=== PATIENT | female | born 1950 | race Caucasian/White ===

== ENCOUNTER → 2016-11-18 | Outpatient (CLI) | payer MEDICARE ==
--- NOTE | 2016-11-18 17:25 | RAD ---
Right lower extremity venous ultrasound, 11/18/2016 : History: Right leg pain and swelling Duplex evaluation including grayscale, color flow and spectral Doppler analysis was performed. The femoral and popliteal veins show no filling defects to suggest DVT. The visualized deep veins in the right calf are unremarkable. IMPRESSION: There is no sonographic evidence of deep vein thrombosis in the right lower extremity
== END | disposition home or self-care (01) ==
LOC: US 16:53
PROVIDERS: ATTEND Family Medicine
DX: M79.604 Pain in right leg (principal); M79.89 Other specified soft tissue disorders
CPT/HCPCS: 93971

== ENCOUNTER → 2017-01-05 | Outpatient (CLI) | payer MEDICARE ==
--- NOTE | 2017-01-05 19:07 | RAD ---
APPROVED REPORT Patient Location : OUT-PATIENT Indications Skin Changes The bilateral greater and lesser saphenous veins do not demonstrate any evidence of thrombus on limit ed images. The RGSV measures 6.3 mm, LGSV measures 4.8 mm. No reflux is noted on color and spectral images. The RLSV measures 6.1 mm and LLSV measures 3.9 mm. No reflux is noted on color and spectral images. Critical Notification Critical Value: No <Conclusion> 1. Negative for venous reflux in the greater and lesser saphenous veins bilaterally. 2. Multiple spider veins noted, consider referral to cosmetic vein center.
== END | disposition home or self-care (01) ==
LOC: US 12:36
PROVIDERS: ATTEND Internal Medicine Cardiovascular Disease
DX: I87.2 Venous insufficiency (chronic) (peripheral) (principal)
CPT/HCPCS: 93970

== ENCOUNTER 2017-01-11 18:09 | Emergency (ER) | payer MEDICARE ==
[~2017-01-11] VITALS: Ht 162.6 cm; Wt 76.8 kg
--- NOTE | 2017-01-11 18:30 | PHYS DOC ---
Past History Additional Past Medical Histor: alpha-1 antitrypsan; Piedad's granulomatous Past Surgical History: No Surgical History Smoking: Cigarettes Social History Narrative: Adult General Chief Complaint Chief Complaint: MECHANICAL FALL HPI HPI Patient is a 66 year old female who presents with fall. She states she fell by her closet at 0400 am today. She hit the left side of her face. She did not seek medical care today. She ironically had an ECHO done today and the laboratory development technician told her to "get checked out." Left sided neck pain. No back pain. No chest pain; no SOA. her ECHO today was negative (report already posted) and she had recent LE US that were negative as well. She is followed by Dr bello. Review of Systems Review of Systems Respiratory: Denies cough or shortness of breath Cardiovascular: No chest pain GI: Denies abdominal pain, nausea, vomiting, bloody stools or diarrhea Musculoskeletal: Denies back pain or joint pain; left sided neck pain. Left shoulder pain but with ROM. Integument: Denies rash or skin lesions; abrasion to left eyebrow. Neurologic: Denies headache, focal weakness or sensory changes Physical Exam Physical Exam Constitutional: Well developed, well nourished, no acute distress, non-toxic appearance. HENT: Normocephalic, abrasion to left lateral eyebrow, TM clear without hemotympanum; bilateral external ears normal, oropharynx moist, no oral exudates, nose normal. Eyes: PERRLA, EOMI, conjunctiva normal, no discharge. Neck: Normal range of motion, no tenderness, supple, no stridor. Non tender to palpation of cervical spine; no step off or crepitance. Cardiovascular:Heart rate regular rhythm, no murmur Lungs & Thorax: Bilateral breath sounds clear to auscultation Abdomen: Bowel sounds normal, soft, no tenderness, no masses, no pulsatile masses. Skin: Warm, dry, no erythema, no rash. Abrasion as noted. Back: No tenderness, no CVA tenderness. Extremities: No tenderness, no cyanosis, no clubbing, ROM intact, no edema. Neurologic: Alert and oriented X 3, normal motor function, normal sensory function, no focal deficits noted. Radiology/Procedures Radiology/Procedures [address] [address] IMAGING REPORT Signed PATIENT: LEE VALERO ACCOUNT: [id number] : 1950 LOCATION: ER AGE: 66 SEX: F EXAM STATUS: REG ER ORD. PHYSICIAN: PERNELL DEAN MD REASON: fell left eyebrow injur PROCEDURE: CT HEAD AND CERVICAL SPINE WO Indication: Fall today, laceration to left eyebrow. Neck pain. Technique: Noncontrast CT head was obtained. CT cervical spine includes axial images and coronal and sagittal reformatted images. No comparison is available. One or more of the following individualized dose reduction techniques were utilized for this examination: 1. Automated exposure control 2. Adjustment of the mA and/or kV according to patient size 3. Use of iterative reconstruction technique Findings: Head: There is prominence of the ventricles and sulci. Areas of decreased attenuation in the supratentorial white matter are not specific but most suggestive of mild small vessel ischemic disease. There is no acute intracranial hemorrhage or extra-axial fluid collection. There is no mass effect or midline shift. Fernandez-white differentiation is preserved. There are vascular calcifications. Paranasal sinuses and mastoid air cells are clear. There is no depressed skull fracture. Cervical spine: Anterolisthesis at C4-C5 measures 3 mm, likely degenerative. No traumatic malalignment is identified. There is no fracture. Prevertebral soft tissues are within normal limits. Craniovertebral junction is unremarkable. Disc osteophyte complex and uncinate process spurring is noted at C5-C6 and C6-C7, greater at C6-C7. At C6-C7 there is also endplate sclerosis and narrowing of the interspace. There is foraminal narrowing at these 2 levels, at least moderate, and there may be mild canal stenosis. Lymph nodes along the cervical chains are presumed reactive. IMPRESSION: Head: 1. No acute intracranial findings. 2. Brain parenchymal volume loss and probable small vessel ischemic disease. Cervical spine: 1. No evidence of an acute fracture or traumatic malalignment. 2. Degenerative changes are greatest at C5-C6 and C6-C7. Electronically signed by: Nayla Paz MD (01/11/2017 7:23 PM) [facility] DICTATED AND SIGNED BY: NAYLA PAZ MD DATE: 01/11/171916 CC: PERNELL DEAN MD; JESSICA NAIK MD ~ Course & Med Decision Making Course & Med Decision Making Evaluated patient. CT ordered. At 1935 PM: Ct results back. No acute findings. Spouse here and given results. Continue with follow up as scheduled. I have spoken with the patient and/or caregivers. I have explained the patient' s condition, diagnosis and treatment plan based on the information available to me at this time. I have answered the patient's and/or caregiver's questions and addressed any concerns. The patient and/or caregivers have as good an understanding of the patient's diagnosis, condition and treatment plan as can be expected at this point. The patient's condition is stable and appropriate for discharge from the emergency department. The patient will pursue further outpatient evaluation with the primary care physician or other designated or consulting physician as outlined in the discharge instructions. The patient and/or caregivers are agreeable to this plan of care and follow-up instructions have been explained in detail. The patient and/or caregivers have received these instructions in written format and have expressed an understanding of the discharge instructions. The patient and/or caregivers are aware that any significant change in condition or worsening of symptoms should prompt an immediate return to this or the closest emergency department or a call to 911. Dragon Disclaimer Dragon Disclaimer This chart was dictated in whole or in part using Voice Recognition software in a busy, high-work load, and often noisy Emergency Department environment. It may contain unintended and wholly unrecognized errors or omissions. Departure Departure: Impression: Primary Impression: Fall Additional Impression: Facial contusion Disposition: 01 HOME, SELF-CARE Condition: STABLE Referrals: JESSICA NAIK MD (PCP) Patient Instructions: Facial or Scalp Contusion Additional Instructions: Your tetanus was up to date so you were not boosted here today. Problem Qualifiers Primary Impression: Fall Encounter type: initial encounter Qualified Codes: W19.XXXA - Unspecified fall, initial encounter Additional Impression: Facial contusion Encounter type: initial encounter Qualified Codes: S00.83XA - Contusion of other part of head, initial encounter PERNELL DEAN MD Jan 11, 2017 18:30
--- NOTE | 2017-01-11 19:26 | RAD ---
Indication: Fall today, laceration to left eyebrow. Neck pain. Technique: Noncontrast CT head was obtained. CT cervical spine includes axial images and coronal and sagittal reformatted images. No comparison is available. One or more of the following individualized dose reduction techniques were utilized for this examination: 1. Automated exposure control 2. Adjustment of the mA and/or kV according to patient size 3. Use of iterative reconstruction technique Findings: Head: There is prominence of the ventricles and sulci. Areas of decreased attenuation in the supratentorial white matter are not specific but most suggestive of mild small vessel ischemic disease. There is no acute intracranial hemorrhage or extra-axial fluid collection. There is no mass effect or midline shift. Fernandez-white differentiation is preserved. There are vascular calcifications. Paranasal sinuses and mastoid air cells are clear. There is no depressed skull fracture. Cervical spine: Anterolisthesis at C4-C5 measures 3 mm, likely degenerative. No traumatic malalignment is identified. There is no fracture. Prevertebral soft tissues are within normal limits. Craniovertebral junction is unremarkable. Disc osteophyte complex and uncinate process spurring is noted at C5-C6 and C6-C7, greater at C6-C7. At C6-C7 there is also endplate sclerosis and narrowing of the interspace. There is foraminal narrowing at these 2 levels, at least moderate, and there may be mild canal stenosis. Lymph nodes along the cervical chains are presumed reactive. IMPRESSION: Head: 1. No acute intracranial findings. 2. Brain parenchymal volume loss and probable small vessel ischemic disease. Cervical spine: 1. No evidence of an acute fracture or traumatic malalignment. 2. Degenerative changes are greatest at C5-C6 and C6-C7. Electronically signed by: Lawrence Paz MD (01/11/2017 7:23 PM) [facility]
[2017-01-11 19:45] VITALS: BP 150/84
== END 2017-01-11 19:45 | disposition home or self-care (01) ==
LOC: ER 18:11
DX: S00.83XA Contusion of other part of head, initial encounter (principal); M54.2 Cervicalgia; M25.512 Pain in left shoulder; S00.212A Abrasion of left eyelid and periocular area, initial encounter; F17.210 Nicotine dependence, cigarettes, uncomplicated; W18.09XA Striking against other object with subsequent fall, initial encounter; Y93.89 Activity, other specified; Y99.8 Other external cause status; Y92.89 Other specified places as the place of occurrence of the external cause
CPT/HCPCS: 70450; 72125; 99284-25

== ENCOUNTER → 2017-01-11 | Outpatient (CLI) | payer MEDICARE ==
--- NOTE | 2017-01-11 16:58 | CARD ---
APPROVED REPORT EXAM: Two-dimensional and M-mode echocardiogram with Doppler and color Doppler. Other Information Quality : Average Rhythm : NSR INDICATION Hypertension/HCVD 2D DIMENSIONS Left Atrium(2D)2.5 (1.6-4.0cm)IVSd1.0 (0.7-1.1cm) Aortic Root(2D)2.6 (2.0-3.7cm)LVDd4.7 (3.9-5.9cm) LVOT Diameter1.9 (1.8-2.4cm)PWd1.0 (0.7-1.1cm) LVDs3.2 (2.5-4.0cm)FS (%) 27.3 % SV60.0 mlLVEF(%)55.1 (>50%) Aortic Valve AoV Peak Derian.125.8cm/sAoV VTI25.1cm AO Peak GR.6.3mmHgLVOT Peak Derian.107.5cm/s LVOT VTI 21.66cmAO Mean GR.3mmHg MICHAELA (VMAX)2.34ji5OGK (VTI)2.48cm2 Mitral Valve MV E Ifmbbaoa61.3cm/sMV DECEL GJFN299ml MV A Wukagjix54.5cm/sMV XGD08cg E/A Ratio0.9MV A [id number] MVA (PHT)3.56cm2 LEFT VENTRICLE The left ventricle is normal size. There is normal left ventricular wall thickness. Left ventricle sy stolic function is normal. The Ejection Fraction is 50-55%. There is normal LV segmental wall motion. The left ventricular diastolic function and filling is normal for age. There is no ventricular septa l defect visualized. RIGHT VENTRICLE The right ventricle is normal size. The right ventricular systolic function is normal. ATRIA The left atrium size is normal. The right atrium size is normal. The interatrial septum is intact wit h no evidence for an atrial septal defect or patent foramen ovale as noted on 2-D or Doppler imaging. AORTIC VALVE The aortic valve is normal in structure and function. The aortic valve is trileaflet. Doppler and Col or Flow revealed no significant aortic regurgitation. There is no significant aortic valvular stenosi s. MITRAL VALVE The mitral valve is normal in structure and function. There is no mitral valve stenosis. Doppler and Color Flow revealed trace mitral valve regurgitation. TRICUSPID VALVE The tricuspid valve is normal in structure and function. Doppler and Color Flow revealed no tricuspid valve regurgitation noted. There is no tricuspid valve stenosis. PULMONIC VALVE The pulmonic valve is not well visualized. Doppler and Color Flow revealed no pulmonic valvular regur gitation. There is no pulmonic valvular stenosis. GREAT VESSELS The aortic root is normal in size. Pulmonary veins not recorded. The IVC is normal in size and collap ses >50% with inspiration. PERICARDIAL EFFUSION There is no evidence of significant pericardial effusion. Critical Notification Critical Value: No <Conclusion> The left ventricle is normal size. Left ventricle systolic function is normal. The Ejection Fraction is 50-55%. There is normal left ventricular wall thickness. There is no significant aortic valvular stenosis. Doppler and Color Flow revealed no significant aortic regurgitation. Doppler and Color Flow revealed trace mitral valve regurgitation. Doppler and Color Flow revealed no tricuspid valve regurgitation.
== END | disposition home or self-care (01) ==
LOC: ECHO 12:41
PROVIDERS: ATTEND Internal Medicine Cardiovascular Disease
DX: I10 Essential (primary) hypertension (principal)
CPT/HCPCS: 93306

== ENCOUNTER 2017-02-22 10:21 | Inpatient (IN) | payer MEDICARE ==
[~2017-02-22] VITALS: Ht 160 cm; Wt 73.3 kg
[2017-02-22] VITALS (10 sets, daily range): BP systolic 100–147; BP diastolic 51–73
[2017-02-22] MEDS ORDERED: methylPREDNISolone SOD SUCC PF 125 MG/2 ML VIAL. IV ONE (11:10)
[2017-02-22] MEDS ORDERED: IPRATRPIUM/ALBUTEROL 0.5/2.5MG 3 ML NEBU. NEB ONE (11:15)
[2017-02-22 11:16] LABS: BASO # 0.1 x10^3/uL (0.0-0.2); BASO % 1 % (0-3); EOS # 0.2 x10^3/uL (0.0-0.7); EOS % 2 % (0-3); LYMPH # 2.3 x10^3/uL (1.0-4.8); LYMPH % 25 % (24-48); MEAN CORPUSCULAR HEMOGLOBIN 30 pg (25-35); MEAN CORPUSCULAR HGB CONC 33 g/dL (31-37); MEAN CORPUSCULAR VOLUME 90 fL (79-100); MONO # 0.8 x10^3/uL (0.0-1.1); MONO % 9 % (0-9); NEUT # 5.7 x10^3uL (1.8-7.7); NEUT % 64 % (31-73); PLATELET COUNT 261 x10^3/uL (140-400); RED BLOOD COUNT 5.37 x10^6/uL (3.50-5.40); RED CELL DISTRIBUTION WIDTH 13.9 % (11.5-14.5)
[2017-02-22 11:18] LABS: BGAS PH 7.36 (7.35-7.45)
--- NOTE | 2017-02-22 11:20 | PHYS DOC ---
General Chief Complaint: SHORTNESS OF BREATH Stated Complaint: COUGH SOA Time Seen by MD: 10:22 Source: patient, RN/MD, old records Exam Limitations: no limitations Problems: History of Present Illness Initial Comments Patient is a 66-year-old female sent to the ED from upstairs at Dr. Lechuga's office with respiratory distress. I received a call from Dr. Lechuga to report that the patient has history of COPD. She states she still smokes and that she's had a reported 1 week worsening cough with productive clear mucus. She has an oxygen diffuse her home but has not been using it up until the last few days. He reports that her room air oxygen saturation is 88-89% in his office on room air and the patient received O2 via nasal cannula throughout her office visit with him earlier today. On arrival to the emergency department patient has a severe cough and conversational dyspnea, she confirms her primary care doctor's report given over the phone. She denies actual chest pain other than chest wall and abdominal muscle pain she feels when coughing or taking deep breaths. She's had pneumonia in the past and states her symptoms are similar today however she hasn 't had recent fever chills or body aches. On ED arrival patient noted to have oxygen saturation on room air 88-91% DuoNeb and Solu-Medrol order on arrival in addition to labs, EKG, and imaging workup. Timing/Duration: 1 week, getting worse Severity: moderate Modifying Factors: worse with movement, improves with rest Associated Symptoms: cough, shortness of breath Allergies: Coded Allergies: doxycycline (Verified Allergy, Unknown, 01/11/17) methotrexate (Verified Allergy, Unknown, 01/11/17) Past Medical History Medical History: other (alpha-1 antitrypsin deficiency, rheumatoid arthritis, Piedad's granuloma, COPD) Surgical History: other (appendectomy, hysterectomy, partial colectomy, left shoulder, left wrist) Social History Smoker: cigarettes (patient continues to smoke about a pack a day typically) Alcohol: none Drugs: none Review of Systems Constitutional: denies chills, denies diaphoresis, denies fever, malaise, weakness Respiratory: see HPI Cardiovascular: see HPI, denies edema, denies palpitations, denies syncope Gastrointestinal: see HPI, denies diarrhea, denies nausea, denies vomiting Genitourinary: denies dysuria, denies frequency, denies hematuria Musculoskeletal: see HPI, denies back pain, denies joint swelling, denies neck pain Psychiatric/Neurological: denies headache, denies numbness, denies paresthesia Hematologic/Lymphatic: denies blood clots, denies easy bleeding, denies easy bruising Physical Exam General Appearance: moderate distress (severe coughing and tachypnea respiratory distress) Eyes: bilateral eye PERRL, bilateral eye EOMI Ear, Nose, Throat: hearing grossly normal, normal ENT inspection, normal pharynx Neck: non-tender, supple Respiratory: respiratory distress, other (decreased breath sounds bilaterally with fair air movement and a wheeze, accessory muscle use noted) Cardiovascular: normal peripheral pulses, regular rate, rhythm Gastrointestinal: normal bowel sounds, non tender, soft Back: no CVA tenderness, no vertebral tenderness Extremities: non-tender, normal inspection (one plus pitting lower extremity edema), no calf tenderness, pelvis stable Neurologic/Psychiatric: field naturalist II-XII nml as tested, no motor/sensory deficits, alert, normal mood/affect, oriented x 3 Skin: normal color, warm/dry Orders, Labs, Meds EKG: Normal sinus rhythm 80 bpm, nonspecific ST-T changes no STEMI. Interpreted by Dr. Taylor. ABG: PH 7.361, PCO2 28.8, PO2 57, base excess -9, bicarbonate 16.3, PCO2 17, oxygen saturation 89%, FiO2 21% PATIENT: LEE VALERO ACCOUNT: [id number] : 1950 LOCATION: ER AGE: 66 SEX: F EXAM STATUS: REG ER ORD. PHYSICIAN: ALISA TAYLOR DO REASON: sob PROCEDURE: CHEST PA & LATERAL 2 view CXR: Clinical indications: Wheezing and shortness of air and cough. Long time smoker.. Findings: Bilateral interstitial lung disease and peribronchial thickening is seen which may be acute or chronic in nature. No lung consolidation or lung mass is seen. No pleural effusion or pneumothorax is evident. The heart size, pulmonary vasculature, mediastinum and both ofelia are unremarkable. The osseous structures appear intact. Impression: Bilateral interstitial lung disease and peribronchial thickening which may be acute or chronic in nature. No lung consolidation is seen otherwise.. DICTATED AND SIGNED BY: MOHINDER TERRAZAS MD DATE: 02/22/17 1120 CC: JESSICA LECHUGA MD; ALISA TAYLOR DO ~ Lab evaluation unremarkable Patient received Solu-Medrol 125 mg IV, DuoNeb initially which worsened her cough and clear sputum production. Guaifenesin with codeine and another albuterol nebulizer treatment given and after a time the patient's symptoms did appear to let up somewhat and she maintained oxygen saturations around 91% on room air shortly thereafter she relaxed and fell asleep. Oxygen saturation dipped to 86% while sleeping and supplemental O2 2 L improved saturations to the low 90s. I discussed the patient with Dr. Truong. After thorough discussion he recommends ICU inpatient admission for further respiratory support and monitor labs. Patient is agreeable to inpatient treatment, I called a report to Dr. Lechuga personally via phone to advise the patient's admission. Impressions: Respiratory distress COPD exacerbation Tobaccoism Alpha-1 antitrypsin deficiency Piedad's granuloma disease Departure Disposition: ADMITTED INPATIENT Condition: STABLE ALISA TAYLOR DO Feb 22, 2017 11:19
--- NOTE | 2017-02-22 11:25 | RAD ---
2 view CXR: Clinical indications: Wheezing and shortness of air and cough. Long time smoker.. Findings: Bilateral interstitial lung disease and peribronchial thickening is seen which may be acute or chronic in nature. No lung consolidation or lung mass is seen. No pleural effusion or pneumothorax is evident. The heart size, pulmonary vasculature, mediastinum and both ofelia are unremarkable. The osseous structures appear intact. Impression: Bilateral interstitial lung disease and peribronchial thickening which may be acute or chronic in nature. No lung consolidation is seen otherwise..
[2017-02-22 11:38] LABS: CALCIUM 9.9 mg/dL (8.5-10.1); CREATININE 0.9 mg/dL (0.6-1.0); GFR 62.8; POTASSIUM 4.5 mmol/L (3.5-5.1)
[2017-02-22] MEDS: guaiFENesin/CODEINE 100mg/10mg 5 ML LIQUID PO PRN ×2 (12:15→21:43)
[2017-02-22] MEDS ORDERED: ACETAMINOPHEN 325 MG TABLET PO PRN (12:30)
[2017-02-22] MEDS ORDERED: ONDANSETRON PF 4 MG/2 ML VIAL. IV PRN (12:30)
[2017-02-22] MEDS ORDERED: ALBUTEROL SULFATE 2.5 MG/3 ML NEBU. ONE (12:53)
--- NOTE | 2017-02-22 14:09 | EKG ---
[address] [address] Test Date: 2017-02-22 Test Time: 11:08:38 Pat Name: LEE VALERO Department: Room: ICU06 1 Gender: F Director Multimedia: JEAN : 1950 Requested By: ALISA TAYLOR Order Number: [id number] Reading MD: Rich Thompson MD Measurements Intervals [place] Rate: 80 P: 64 NH: 152 QRS: 65 QRSD: 80 T: 48 QT: 346 QTc: 402 Interpretive Statements SINUS RHYTHM Electronically Signed On 02-28-2017 11:02:15 HOT ROLL INSPECTOR by Rich Thompson MD
[2017-02-22] MEDS: IPRATRPIUM/ALBUTEROL 0.5/2.5MG 3 ML NEBU. NEB SCH ×2 (15:58→21:14)
[2017-02-22] MEDS ORDERED: FLUT1AER IH (16:13)
[2017-02-22] MEDS ORDERED: POTA20TA4 PO (16:14)
[2017-02-22] MEDS ORDERED: MYCO500T PO (16:14)
[2017-02-22] MEDS ORDERED: GABA-585 PO (16:15)
[2017-02-22] MEDS ORDERED: PANT40TA3 PO (16:17)
[2017-02-22] MEDS ORDERED: TRAM50TA PO (16:18)
[2017-02-22] MEDS ORDERED: CITA40TA5 PO (17:00)
[2017-02-22] MEDS ORDERED: GABA600T2 PO (17:00)
[2017-02-22] MEDS ORDERED: CYCL-331 PO (17:01)
[2017-02-22] MEDS ORDERED: PRAM0.5T PO (17:02)
[2017-02-22] MEDS ORDERED: LOSA50TA6 PO (17:03)
[2017-02-22] MEDS ORDERED: traMADol 50 MG TABLET PO PRN (17:45)
--- NOTE | 2017-02-22 18:10 | HP ---
ADMIT DATE: 02/22/2017 HISTORY OF PRESENT ILLNESS: The patient is a 66-year-old female patient, who came to the Emergency Room complaining of shortness of breath, cough, initially white sputum that changed to become dark. She has also had fever at one point in time and she has also complained of chest pain. She was extensively investigated and was admitted with COPD exacerbation. PAST MEDICAL HISTORY: Significant for rheumatoid arthritis, fibromyalgia, Lidia's granulomatosis, alpha 1 antitrypsin deficiency, chronic obstructive pulmonary disease, restless leg syndrome, and hypertension. PAST SURGICAL HISTORY: Significant for left rotator cuff repair, carpal tunnel release. She had appendectomy, total abdominal hysterectomy, bilateral salpingo-oophorectomy, back surgery. She has also some hernia repair and esophagogastroduodenoscopy as well as colonoscopy. ALLERGIES: She is ALLERGIC TO METHOTREXATE WELL DOXYCYCLINE. MEDICATIONS: She is currently on following medications. Currently her home medication is still pending at the time of this dictation. She gets her medication from ____, I would be contacting that pharmacy to find out exactly what she is on. FAMILY HISTORY: She has two half-brothers and both diseased. Her father at age of 89 because of COPD and myocardial infarction. Mother at the age of 90 because of end-stage renal disease. SOCIAL HISTORY: She has 2 daughters. She smokes half to 1 pack of cigarettes. She does not drink alcohol or use any recreational drugs. She is retired and currently on disability. 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 REVIEW OF SYSTEMS: The patient denied any blurring of vision, cataract, glaucoma, or macular degeneration. Denied any earache, tinnitus, or sensorineural deafness. Denied any nosebleeds, stuffy nose, or postnasal drip. Denied any sore throat, sore tongue, toothache, hoarseness of voice, or difficulty swallowing. She denied any nausea, vomiting, diarrhea or constipation. Denied any hematemesis, melena, or hematochezia. Denied any dysuria, frequency, or hematuria. Denied any chills, rigors, or fever. Did complain of shortness of breath, cough with whitish sputum. Denied any hemoptysis. PHYSICAL EXAMINATION: GENERAL: On arrival to the Emergency Room, she was somewhat tachypneic, hypoxic, but no pallor, jaundice, cyanosis, lymphadenopathy, or thyromegaly. No jugular venous distension. No lower limb edema. VITAL SIGNS: Her heart rate was 93, blood pressure 147/67, temperature was 97, respiratory rate was 29, and oxygen saturation was 93% on 2 liters of oxygen by nasal cannula. HEENT: Showed normocephalic, atraumatic. NECK: Supple. HEART: Showed normal first and second heart sounds with no gallop, rub, or murmur. CHEST: Chest shows central trachea, equally reduced expansion, reduced air entry, vesicular sounds. No crepitation or rhonchi. ABDOMEN: Distended, soft, nontender. NEUROLOGIC: She is awake, alert, responding appropriately. Cranial nerves intact. EXTREMITIES: She moves extremities without difficulty. LABORATORY DATA: While in the Emergency Room, she has lab work, which showed a white cell count of 9000, hemoglobin 16, hematocrit 48, MCV 90, and platelet count 261,000 with normal manual differential. Her blood gases showed a pH of 7.36, pCO2 of 29, pO2 of 57, bicarbonate was 16, and oxygen saturation was 89% on room oxygen. Her chemistry showed a serum sodium 138, potassium 4.5, chloride 105, bicarbonate 25, anion gap of 8, BUN 10, creatinine 0.9, estimated GFR was 62 mL per minute. Her glucose 118, calcium was 9.9 and beta natriuretic peptide was 79. Her chest x-ray showed that the patient has bilateral interstitial lung disease and peribronchial thickening, which may be acute or chronic in nature, no lung consolidation or lung mass seen. No pleural effusion or pneumothorax is evident. The heart size, pulmonary vasculature, mediastinum and both ofelia are unremarkable. The osseous structures appear intact. ASSESSMENT AND PLAN: In summary, this is a 66-year-old female patient, who is known to have alpha 1 antitrypsin deficiency, chronic obstructive pulmonary disease as well as Piedad's granulomatosis ____ with increasing shortness of breath, cough with mostly whitish sputum. Her chest x-ray showed no evidence of pneumonia or heart failure. We will continue with nebulized albuterol and Atrovent, steroids and Pulmicort as well as Singulair and we will decide on further management accordingly. JESSICA CAIN MD DR: ELIJAH/elio JOB#: [id number] / [id number]
[2017-02-22] MEDS: BUDESONIDE 0.5 MG/2 ML NEBU NEB SCH (21:13)
[2017-02-22] MEDS: CYCLOBENZAPRINE 10 MG TABLET. PO SCH (21:40)
[2017-02-22] MEDS: MYCOPHENOLATE MOFETIL 500 MG TABLET. PO SCH (21:40)
[2017-02-22] MEDS: POTASSIUM CHLORIDE 20 MEQ TABLET.ER. PO SCH (21:41)
[2017-02-22] MEDS: GABAPENTIN 300 MG CAPSULE. PO SCH (21:42)
[2017-02-22] MEDS: MONTELUKAST 10 MG TABLET. PO SCH (21:42)
[2017-02-22] MEDS: PRAMIPEXOLE 0.5 MG TABLET. PO SCH (21:42)
[2017-02-22] MEDS: methylPREDNISolone SOD SUCC PF 125 MG/2 ML VIAL. IV SCH (21:42)
[2017-02-23] VITALS (16 sets, daily range): BP systolic 81–134; BP diastolic 42–71
[2017-02-23] MEDS: IPRATRPIUM/ALBUTEROL 0.5/2.5MG 3 ML NEBU. NEB SCH ×3 (05:47→15:46)
[2017-02-23 06:26] LABS: BASO % 0 % (0-3); EOS % 0 % (0-3); HEMATOCRIT 42.9 % (36.0-47.0); HEMOGLOBIN 14.4 g/dL (12.0-15.5); LYMPH % 8 % (24-48); MEAN CORPUSCULAR HEMOGLOBIN 30 pg (25-35); MEAN CORPUSCULAR HGB CONC 34 g/dL (31-37); MEAN CORPUSCULAR VOLUME 89 fL (79-100); MONO # 0.2 x10^3/uL (0.0-1.1); MONO % 2 % (0-9); NEUT # 11.1 x10^3uL (1.8-7.7); NEUT % 90 % (31-73); PLATELET COUNT 226 x10^3/uL (140-400); RED BLOOD COUNT 4.81 x10^6/uL (3.50-5.40); RED CELL DISTRIBUTION WIDTH 14.1 % (11.5-14.5); WHITE BLOOD COUNT 12.3 x10^3/uL (4.0-11.0)
[2017-02-23 06:34] LABS: ALBUMIN 3.8 g/dL (3.4-5.0); ALBUMIN/GLOBULIN RATIO 1.1 (1.0-1.7); C REACTIVE PROTEIN 4.9 mg/L (0-3.3); CALCIUM 9.4 mg/dL (8.5-10.1); GFR 55.6; TOTAL BILIRUBIN 0.5 mg/dL (0.2-1.0); TOTAL PROTEIN 7.2 g/dL (6.4-8.2)
[2017-02-23] MEDS: methylPREDNISolone SOD SUCC PF 125 MG/2 ML VIAL. IV SCH ×2 (06:37→17:11)
[2017-02-23] MEDS: MYCOPHENOLATE MOFETIL 500 MG TABLET. PO SCH ×2 (07:49→21:19)
[2017-02-23] MEDS: PANTOPRAZOLE 40 MG TABLET. PO SCH (07:49)
[2017-02-23] MEDS: GABAPENTIN 300 MG CAPSULE. PO SCH ×3 (07:50→21:21)
[2017-02-23] MEDS: CYCLOBENZAPRINE 10 MG TABLET. PO SCH ×2 (07:50→21:17)
[2017-02-23] MEDS: LOSARTAN 50 MG TABLET. PO SCH (07:52)
[2017-02-23] MEDS: guaiFENesin/CODEINE 100mg/10mg 5 ML LIQUID PO PRN ×2 (07:52→21:43)
[2017-02-23] MEDS: POTASSIUM CHLORIDE 20 MEQ TABLET.ER. PO SCH ×2 (07:53→21:21)
[2017-02-23] MEDS: CITALOPRAM 20 MG TABLET. PO SCH (07:53)
[2017-02-23] MEDS: BUDESONIDE 0.5 MG/2 ML NEBU NEB SCH ×2 (09:17→20:59)
[2017-02-23] MEDS: LACTOBACILLUS ACIDOPH & BULGAR 1 TABLET. PO SCH ×2 (10:07→21:18)
[2017-02-23] MEDS: ALBUTEROL SULFATE 2.5 MG/3 ML NEBU. NEB PRN (20:59)
[2017-02-23] MEDS: MONTELUKAST 10 MG TABLET. PO SCH (21:17)
[2017-02-23] MEDS: PRAMIPEXOLE 0.5 MG TABLET. PO SCH (21:18)
--- NOTE | 2017-02-24 01:22 | PN ---
DATE: 02/23/2017 SUBJECTIVE: The patient is resting slightly propped up in bed, in no apparent respiratory distress. She was actually sleepy, but arousable. She is feeling much better. OBJECTIVE: GENERAL: When I examined her, she looked slightly pale, but not jaundiced, cyanosed or thyromegaly. No jugular venous distention. No limb edema. VITAL SIGNS: Her heart rate was 94, blood pressure 128/58, temperature was 97.8, respiratory rate 20, and oxygen saturation was 96% on 2 liters of oxygen. HEAD, EYES, EARS, NOSE AND THROAT: Showed normocephalic, atraumatic. NECK: Supple. HEART: Showed normal first and second heart sounds with no gallop, rub or murmur. CHEST: Clear to auscultation. No crepitation or rhonchi. ABDOMEN: Distended, soft, nontender. NEUROLOGIC: She was sleepy, but arousable. All cranial nerves intact. She moves extremities without difficulty. Her intake was 2250, output was 1100. LABORATORY DATA: Her lab work this morning showed a white cell count of 12,300, hemoglobin 14, hematocrit 42, MCV 89 and platelet count 226,000. Her serum sodium was 135, potassium 5, chloride 104, bicarbonate 20, anion gap of 11, BUN 17, creatinine 1, estimated GFR was 55 mL per minute. Her glucose 136, calcium 9.4. Total bilirubin, AST, ALT were normal. Alkaline phosphatase slightly elevated. She has 3 sets of troponins, all of them are less than 0.017. Her C-reactive protein was 4.9. Her total protein 7.2, albumin 3.8. Her sedimentation rate was 18. ASSESSMENT: 1. Acute hypoxic hypercapnic respiratory failure. 2. Chronic obstructive pulmonary disease exacerbation. 3. Piedad granulomatosis. 4. Alpha-1 antitrypsin deficiency. 5. Rheumatoid arthritis. 6. Fibromyalgia. 7. Restless legs syndrome. 8. Hypertension. PLAN: To continue with IV Solu-Medrol, nebulized albuterol and Atrovent as well as IV antibiotic. I will cut down her steroids twice a day and monitor her lab work and decide on further management accordingly. JESSICA CAIN MD DR: ELIJAH/elio JOB#: [id number] / [id number]
[2017-02-24] MEDS: ALBUTEROL SULFATE 2.5 MG/3 ML NEBU. NEB PRN ×2 (05:36→11:13)
[2017-02-24] MEDS: methylPREDNISolone SOD SUCC PF 125 MG/2 ML VIAL. IV SCH (06:06)
[2017-02-24 06:23] VITALS: BP 145/69
[2017-02-24] MEDS: CITALOPRAM 20 MG TABLET. PO SCH (07:37)
[2017-02-24] MEDS: LOSARTAN 50 MG TABLET. PO SCH (07:37)
[2017-02-24] MEDS: PANTOPRAZOLE 40 MG TABLET. PO SCH (07:37)
[2017-02-24] MEDS: CYCLOBENZAPRINE 10 MG TABLET. PO SCH (07:37)
[2017-02-24] MEDS: GABAPENTIN 300 MG CAPSULE. PO SCH (07:37)
[2017-02-24] MEDS: LACTOBACILLUS ACIDOPH & BULGAR 1 TABLET. PO SCH (07:38)
[2017-02-24] MEDS: MYCOPHENOLATE MOFETIL 500 MG TABLET. PO SCH (07:38)
[2017-02-24 08:10] LABS: ALBUMIN 3.7 g/dL (3.4-5.0); ALBUMIN/GLOBULIN RATIO 1.2 (1.0-1.7); CREATININE 1.1 mg/dL (0.6-1.0); GFR 49.8; POTASSIUM 4.8 mmol/L (3.5-5.1); TOTAL BILIRUBIN 0.3 mg/dL (0.2-1.0); TOTAL PROTEIN 6.8 g/dL (6.4-8.2)
[2017-02-24 08:11] LABS: BASO % 0 % (0-3); EOS % 0 % (0-3); HEMATOCRIT 41.9 % (36.0-47.0); LYMPH # 0.7 x10^3/uL (1.0-4.8); LYMPH % 4 % (24-48); MEAN CORPUSCULAR HEMOGLOBIN 30 pg (25-35); MEAN CORPUSCULAR HGB CONC 33 g/dL (31-37); MEAN CORPUSCULAR VOLUME 90 fL (79-100); MONO # 0.6 x10^3/uL (0.0-1.1); MONO % 3 % (0-9); NEUT # 15.4 x10^3uL (1.8-7.7); NEUT % 92 % (31-73); PLATELET COUNT 243 x10^3/uL (140-400); RED BLOOD COUNT 4.68 x10^6/uL (3.50-5.40); RED CELL DISTRIBUTION WIDTH 14.5 % (11.5-14.5); WHITE BLOOD COUNT 16.8 x10^3/uL (4.0-11.0)
[2017-02-24 08:44] LABS: % BANDS 2 % (0-9); % LYMPHS 5 % (24-48); % MONOS 2 % (0-10); % SEGS 91 % (35-66)
[2017-02-24 08:45] LABS: PLT ESTIMATE ADEQUATE (ADEQUATE); TOXIC GRANULATION SLIGHT
[2017-02-24] MEDS: POTASSIUM CHLORIDE 20 MEQ TABLET.ER. PO SCH (09:00)
[2017-02-24 11:00] VITALS: BP 125/64
[2017-02-24] MEDS: BUDESONIDE 0.5 MG/2 ML NEBU NEB SCH (11:13)
[2017-02-24] MEDS ORDERED: CEFP200T PO (13:45)
--- NOTE | 2017-02-24 15:50 | DS ---
DATE OF DISCHARGE: 02/24/2017 HOSPITAL COURSE: The patient is a 66-year-old female patient who was admitted to the Emergency Room with increasing shortness of breath, also fever, chest pain. She was extensively investigated and was admitted with COPD exacerbation and acute hypoxic hypercapnic respiratory failure. She was started on IV Solu-Medrol, bronchodilators as well as IV antibiotic and she did very well. When I saw her, she has had no further episodes of chest tightness, cough, or phlegm. Has no wheezing. She is not using any accessory muscles, has been up and about maintaining her oxygen saturation at 95% on room air. PHYSICAL EXAMINATION: GENERAL: When I examined her this afternoon, she looked well and was clearly in no apparent respiratory distress, pale and no jaundice, cyanosis, or thyromegaly. No jugular venous distention. No limb edema. VITAL SIGNS: Her heart rate was 82, blood pressure 125/64, temperature was 97.7, respiratory rate was 18 and oxygen saturation was 95% on room air. HEAD, EYES, EARS, NOSE AND THROAT: Showed normocephalic, atraumatic. NECK: Supple. HEART: Showed normal first and second heart sounds with no gallop, rub or murmur. CHEST: Clear to auscultation. No crepitation or rhonchi. ABDOMEN: Distended, soft, nontender. No guarding or rigidity. No organomegaly. Hernial orifices intact. Bowel sounds normal. NEUROLOGIC: She was awake, alert, responding appropriately. Cranial nerves intact. She moves extremities without difficulty. She ambulates without assistance or assistive devices. Her intake was 2414 and no output was recorded. LABORATORY WORK: As of this morning showed her white cell count was 16,800, hemoglobin 14, hematocrit 42, MCV 90 and platelet count 243,000. Her sedimentation rate was only 18 mm per hour. Her serum sodium was 136, potassium 4.8, chloride 104, bicarbonate 21, and anion gap of 11. BUN 29, creatinine 1.1. Estimated GFR was 50 mL per minute. Her glucose was 111, calcium was 9. Total bilirubin, AST, ALT, alkaline phosphatase were normal. Her C-reactive protein was 4.9 mg/dL. Total protein 6.8, albumin 3.7. DISCHARGE MEDICATIONS: The patient was discharged home to continue on a tapering course of steroids 40 mg once a day for three days, 30 mg once a day for three days, 20 mg once a day for three days, and finally 10 mg one a day for three days. Cefpodoxime 200 mg twice a day for seven days. She should continue on her citalopram hydrobromide 40 mg once a day, cyclobenzaprine 10 mg twice a day, Breo Ellipta one puff daily, gabapentin 600 mg 3 times a day, losartan potassium 50 mg once a day, mycophenolate mofetil or CellCept 1000 mg twice a day, Protonix 40 mg daily, potassium chloride 40 mEq twice a day, pramipexole 0.5 mg at bedtime and tramadol 50 mg p.o. q.6h. as needed. FINAL DISCHARGE DIAGNOSES: 1. Acute hypoxic respiratory failure, resolved. 2.Chronic obstructive pulmonary disease exacerbation, improved. 3.Piedad's granulomatosis, in remission. She is on CellCept and her sed rate was only 18. C-reactive protein was 4.5 mg/dL. 4.Alpha-1 antitrypsin deficiency. 5. Rheumatoid arthritis. 6. Fibromyalgia. 7. Restless leg syndrome. 8. Hypertension. JESSICA CAIN MD DR: ELIJAH/elio JOB#: [id number] / [id number]
== END 2017-02-24 14:20 | disposition home or self-care (01) | DRG 189 ==
LOC: ER 10:21 → ICU 12:35
PROVIDERS: ADMIT Internal Medicine; ATTEND Internal Medicine
DX: J96.01 Acute respiratory failure with hypoxia (principal); M31.30 Wegener's granulomatosis without renal involvement; E88.01 Alpha-1-antitrypsin deficiency; J44.1 Chronic obstructive pulmonary disease with (acute) exacerbation; F17.210 Nicotine dependence, cigarettes, uncomplicated; G25.81 Restless legs syndrome; I10 Essential (primary) hypertension; J96.02 Acute respiratory failure with hypercapnia; M06.9 Rheumatoid arthritis, unspecified; M79.7 Fibromyalgia; Z82.49 Family history of ischemic heart disease and other diseases of the circulatory system; Z82.5 Family history of asthma and other chronic lower respiratory diseases; Z87.01 Personal history of pneumonia (recurrent); Z90.710 Acquired absence of both cervix and uterus; Z90.49 Acquired absence of other specified parts of digestive tract; Z90.722 Acquired absence of ovaries, bilateral; Z88.8 Allergy status to other drugs, medicaments and biological substances
CPT/HCPCS: 36415; 71020; 80048; 80053; 82803; 83880; 84484; 85007; 85025; 85651; 86140; 87070; 87205; 87641; 93005; 94640; 96374; J0696; J2930; J7517; J7613; J7620; J7626; 99285-25

== ENCOUNTER 2017-07-10 10:05 | Emergency (ER) | payer MEDICARE ==
[~2017-07-10] VITALS: Ht 160 cm; Wt 76.8 kg
[~2017-07-10 10:05] MED LIST: CEFP200T PO; CITA40TA5 PO; CYCL-331 PO; FLUT1AER IH; GABA-585 PO; GABA600T2 PO; LOSA50TA6 PO; MYCO500T PO; PANT40TA3 PO; POTA20TA4 PO; PRAM0.5T PO; TRAM50TA PO
[2017-07-10 10:16] VITALS: BP 135/76
[2017-07-10] MEDS ORDERED: HYDROcodone/APAP 5/325MG 1 TAB TABLET PO ONE (10:50)
--- NOTE | 2017-07-10 10:59 | RAD ---
Left knee with patella, 4 views, 07/10/2017: History: Knee pain No fracture or dislocation is identified. Only minimal arthritic changes noted. No joint effusion is seen. Extensive arterial calcifications are present. IMPRESSION: No acute abnormality is detected.
--- NOTE | 2017-07-10 12:31 | PHYS DOC ---
Past History Past Medical History: COPD Additional Past Medical Histor: alpha-1 antitrypsan; Piedad's granulomatous Past Surgical History: Appendectomy, Hysterectomy Smoking: Cigarettes Alcohol Use: None Drug Use: None Adult General Chief Complaint Chief Complaint: KNEE PAIN [facility] HPI 67-year-old female patient complaining of pain in the posterior side of left knee for one week that usually happens with activity and getting constant for the last 2-3 days. Patient said the pain is sharp and radiated to her high and getting force with activity and rated her pain 9/10. Patient denies focal neuro deficit, injury, fever and chills, shortness of breath, chest pain, history of recent immobilization. Patient states she had history of DVT long time ago but currently doesn't take any anticoagulation medication. Review of Systems Review of Systems Constitutional: Denies fever or chills [] Eyes: Denies change in visual acuity, redness, or eye pain [] HENT: Denies nasal congestion or sore throat [] Respiratory: Denies cough or shortness of breath [] Cardiovascular: No additional information not addressed in HPI [] GI: Denies abdominal pain, nausea, vomiting, bloody stools or diarrhea [] : Denies dysuria or hematuria [] Musculoskeletal: Denies back pain , reports joint pain [] Integument: Denies rash or skin lesions [] Neurologic: Denies headache, focal weakness or sensory changes [] Endocrine: Denies polyuria or polydipsia [] All other systems were reviewed and found to be within normal limits, except as documented in this note. Current Medications Current Medications Current Medications Medications (Trade) Dose Ordered Sig/Rio Start Time Stop Time Status Last Admin Dose Admin Acetaminophen/ Hydrocodone Bitart (Lortab 5/325) 1 tab 1X ONCE 07/10/17 10:50 07/10/17 10:51 DC 07/10/17 10:53 1 TAB Allergies Allergies Allergies Coded Allergies Type Severity Reaction Last Updated Verified doxycycline Allergy Intermediate 02/23/17 Yes methotrexate Allergy Intermediate 02/23/17 Yes Physical Exam Physical Exam Constitutional: Well developed, well nourished, moderate distress, non-toxic appearance. [] HENT: Normocephalic, atraumatic Eyes: PERRLA, EOMI, conjunctiva normal, no discharge. [] Neck: Normal range of motion, no tenderness, supple, no stridor. [] Cardiovascular:Heart rate regular rhythm, no murmur [] Lungs & Thorax: Bilateral breath sounds clear to auscultation [] Skin: Warm, dry, no erythema, no rash. [] Back: No tenderness, no CVA tenderness. [] Extremities: Left lower extremity without deformity, mild edema, tenderness in posterior of left knee ,no neurovascular deficit Neurologic: Alert and oriented X 3, normal motor function, normal sensory function, no focal deficits noted. [] Psychologic: Anxious, judgement normal, mood normal. [] Current Patient Data Vital Signs Vital Signs Date Time Temp Pulse Resp B/P (MAP) Pulse Ox O2 Delivery O2 Flow Rate FiO2 07/10/17 10:53 16 98 07/10/17 10:16 97.9 59 Room Air EKG EKG [] Radiology/Procedures Radiology/Procedures [] [place] [address] IMAGING REPORT Signed PATIENT: LEE VALERO ACCOUNT: [id number] : 1950 LOCATION: ER AGE: 67 SEX: F EXAM STATUS: REG ER ORD. PHYSICIAN: LB DAVISON MD REASON: pain in knee PROCEDURE: KNEE LEFT 4V Left knee with patella, 4 views, 07/10/2017: History: Knee pain No fracture or dislocation is identified. Only minimal arthritic changes noted. No joint effusion is seen. Extensive arterial calcifications are present. IMPRESSION: No acute abnormality is detected. DICTATED AND SIGNED BY: KAILASH VALERA MD DATE: 07/10/17 1055 CC: LB DAVISON MD; JESSICA NAIK MD ~ [address] [address] IMAGING REPORT Signed PATIENT: LEE VALERO ACCOUNT: [id number] : 1950 LOCATION: ER AGE: 67 SEX: F EXAM STATUS: REG ER ORD. PHYSICIAN: LB DAVISON MD REASON: pain in posterior of knee x 1 week PROCEDURE: VENOUS LOWER EXTREMITY LEFT Left lower extremity venous ultrasound, 07/10/2017 : History: Left posterior knee pain Duplex evaluation including grayscale, color flow and spectral Doppler analysis was performed. The left common femoral vein is patent. There is a segment of the femoral vein in the distal left thigh which is incompletely compressible. Color imaging demonstrates a smooth nonocclusive filling defect along the wall of the vein at this level. The left popliteal vein is widely patent. The visualized deep veins in the left calf show no abnormality. Incidental note is made of a small 2.9 x 2.5 x 0.7 cm fluid collection in the popliteal fossa medially compatible with a small Hernandez's cyst. IMPRESSION: 1. Short segment of nonocclusive thrombus in the femoral vein in the distal left thigh. 2. Small left popliteal cyst. DICTATED AND SIGNED BY: KAILASH VALERA MD DATE: 07/10/17 2758 CC: LB DAVISON MD; JESSICA NAIK MD Course & Med Decision Making Course & Med Decision Making Pertinent Imaging studies reviewed. (See chart for details) Evaluation of patient in ER showed 67-year-old female patient with complaining of pain in posterior of left lower extremity for one week that getting worse for the last 2-3 days. Patient had small nonobstructive DVT in left femoral vein. Patient treated with Vicodin and Lovenox in ER and prescription for Lovenox and Vicodin for home was given and instructed to follow with her primary care physician in 2 days for long-term anticoagulation medication. [] Dragon Disclaimer Dragon Disclaimer This electronic medical record was generated, in whole or in part, using a voice recognition dictation system. Departure Departure: Impression: Primary Impression: DVT (deep venous thrombosis) Additional Impressions: DVT, femoral, acute Tobacco abuse Tobacco abuse counseling Disposition: HOME, SELF-CARE (At 1254) Condition: IMPROVED Referrals: JESSICA NAIK MD (PCP) Patient Instructions: Deep Vein Thrombosis Additional Instructions: Follow-up with your primary care physician in 2 days for prescription of long- term anticoagulation/blood thinner medication Return to ER if not getting better Scripts Hydrocodone Bit/Acetaminophen (NORCO 5-325 TABLET) 1 Each Tablet 1 TAB PO PRN Q6HRS Y for PAIN, #20 TAB 0 Refills Prov: LB DAVISON MD 07/10/17 Enoxaparin Sodium (LOVENOX) 80 Mg/0.8 Ml Disp.syrin 80 MG SQ DAILY for 5 Days, DIS.SYR Prov: LB DAVISON MD 07/10/17 Problem Qualifiers LB DAVISON MD Jul 10, 2017 12:31
[2017-07-10] MEDS ORDERED: ENOX80DI SQ (12:56)
[2017-07-10] MEDS ORDERED: HYDR-971 PO (12:56)
[2017-07-10] MEDS ORDERED: ENOXAPARIN ** NOTE DOSE ** SYRINGE SQ ONE (13:00)
== END 2017-07-10 13:07 | disposition home or self-care (01) ==
LOC: ER 10:05
DX: I82.412 Acute embolism and thrombosis of left femoral vein (principal); J44.9 Chronic obstructive pulmonary disease, unspecified; F17.210 Nicotine dependence, cigarettes, uncomplicated; Z71.6 Tobacco abuse counseling; Z86.718 Personal history of other venous thrombosis and embolism; Z88.1 Allergy status to other antibiotic agents; Z88.8 Allergy status to other drugs, medicaments and biological substances
CPT/HCPCS: 73564; 93971; 96372; 99284; J1650

== ENCOUNTER 2017-08-26 10:28 | Emergency (ER) | payer MEDICARE ==
[~2017-08-26] VITALS: Ht 160 cm; Wt 73.9 kg
[~2017-08-26 10:28] MED LIST changes: +ENOX80DI SQ; +HYDR-971 PO
[2017-08-26] MEDS ORDERED: HYDROmorphone PF 2 MG/ML VIAL ONE (10:57)
--- NOTE | 2017-08-26 11:09 | PHYS DOC ---
Past History Past Medical History: COPD, GERD, Hypertension, Other Additional Past Medical Histor: alpha-1 antitrypsan; Piedad's granulomatous Past Surgical History: Appendectomy, Hysterectomy Smoking: Cigarettes Alcohol Use: None Drug Use: None Adult General Chief Complaint Chief Complaint: LOWER EXT PAIN HPI HPI 67-year-old female presents with left lower extremity pain. The patient has had intermittent pain in this extremity for the last 8 weeks. The pain began to get worse yesterday and is much worse today. She rates it an 8 out of 10. The patient was diagnosed 8 weeks ago with a DVT in the same leg. She is currently being treated with pelvic rest. She has had [place] for pain but has not been taking them recently. She states they only worked the first day or 2. She quit taking them because she did not want to get addicted. Patient denies fever or chills. She denies shortness of breath or chest pain. She denies any recent trauma or overuse that would explain the pain. Review of Systems Review of Systems Constitutional: Denies fever or chills [] Eyes: Denies change in visual acuity, redness, or eye pain [] HENT: Denies nasal congestion or sore throat [] Respiratory: Denies cough or shortness of breath [] Cardiovascular: No additional information not addressed in HPI [] GI: Denies abdominal pain, nausea, vomiting, bloody stools or diarrhea [] : Denies dysuria or hematuria [] Musculoskeletal: Denies back pain or joint pain [] Integument: Denies rash or skin lesions [] Neurologic: Denies headache, focal weakness or sensory changes [] Endocrine: Denies polyuria or polydipsia [] All other systems were reviewed and found to be within normal limits, except as documented in this note. Current Medications Current Medications Current Medications Medications (Trade) Dose Ordered Sig/Rio Start Time Stop Time Status Last Admin Dose Admin Hydromorphone HCl (Dilaudid) 2 mg STK-MED ONCE 08/26/17 10:57 08/26/17 10:58 DC Allergies Allergies Allergies Coded Allergies Type Severity Reaction Last Updated Verified doxycycline Allergy Intermediate 02/23/17 Yes methotrexate Allergy Intermediate 02/23/17 Yes Physical Exam Physical Exam Constitutional: Well developed, well nourished, no acute distress, non-toxic appearance. [] HENT: Normocephalic, atraumatic, bilateral external ears normal, oropharynx moist, no oral exudates, nose normal. [] Eyes: PERRLA, EOMI, conjunctiva normal, no discharge. [] Neck: Normal range of motion, no tenderness, supple, no stridor. [] Cardiovascular:Heart rate regular rhythm, no murmur [] Lungs & Thorax: Bilateral breath sounds clear to auscultation [] Abdomen: Bowel sounds normal, soft, no tenderness, no masses, no pulsatile masses. [] Skin: Warm, dry, no erythema, no rash. [] Back: No tenderness, no CVA tenderness. [] Extremities: No tenderness, no cyanosis, no clubbing, ROM intact, no edema. Bilateral calves grossly equal in size. No sign of cellulitis or skin disruption. Pain with palpation of the posterior left knee.[] Neurologic: Alert and oriented X 3, normal motor function, normal sensory function, no focal deficits noted. [] Psychologic: Affect normal, judgement normal. Tearful.[] Current Patient Data Vital Signs Vital Signs Date Time Temp Pulse Resp B/P (MAP) Pulse Ox O2 Delivery O2 Flow Rate FiO2 08/26/17 10:44 98.1 86 24 97 Room Air EKG EKG [] Radiology/Procedures Radiology/Procedures EXAM: Left lower extremity venous Doppler sonogram. HISTORY: Venous thrombosis. TECHNIQUE: Fernandez scale and color Doppler sonographic evaluation of the left lower extremity veins with spectral waveform analysis was performed. FINDINGS: There is normal color flow, normal compressibility and there are normal spectral waveforms in the common femoral, superficial femoral, popliteal, posterior tibial and greater saphenous veins. There is a curvilinear fluid collection within the popliteal fossa, measuring 2.3 cm in length. IMPRESSION: 1. No Doppler evidence of lower extremity deep venous thrombosis. The previously demonstrated left lower extremity thrombus is not seen. 2. Suspected small left Hernandez's cyst. Electronically signed by: Senait Ellis MD (08/26/2017 12:45 PM) [id number] DICTATED AND SIGNED BY: SENAIT ELLIS MD DATE: 08/26/17 1244 [] Course & Med Decision Making Course & Med Decision Making Pertinent Labs and Imaging studies reviewed. (See chart for details) The patient's ultrasound was negative for DVT. There was a small Hernandez's cyst found. I advised the patient to consider taking her pills prescribed pain medication when her pain is most severe. Also advised that she follow up with her PCP to discuss removal of the Hernandez's cyst and further evaluation of potential causes for her pain. He was in agreement with this plan and is stable for discharge. [] Dragon Disclaimer Dragon Disclaimer This electronic medical record was generated, in whole or in part, using a voice recognition dictation system. Departure Departure: Referrals: JESSICA NAIK MD (PCP) MELODY ESPINO DO August 26, 2017 11:09
[2017-08-26] MEDS ORDERED: MORPHINE SULFATE 4 MG/ML DISP.SYRIN. IM ONE (11:30)
--- NOTE | 2017-08-26 12:48 | RAD ---
EXAM: Left lower extremity venous Doppler sonogram. HISTORY: Venous thrombosis. TECHNIQUE: Fernandez scale and color Doppler sonographic evaluation of the left lower extremity veins with spectral waveform analysis was performed. FINDINGS: There is normal color flow, normal compressibility and there are normal spectral waveforms in the common femoral, superficial femoral, popliteal, posterior tibial and greater saphenous veins. There is a curvilinear fluid collection within the popliteal fossa, measuring 2.3 cm in length. IMPRESSION: 1. No Doppler evidence of lower extremity deep venous thrombosis. The previously demonstrated left lower extremity thrombus is not seen. 2. Suspected small left Hernandez's cyst. Electronically signed by: Senait Jacobs MD (08/26/2017 12:45 PM) [id number]
[2017-08-26 13:50] VITALS: BP 137/72
== END 2017-08-26 14:10 | disposition home or self-care (01) ==
LOC: ER 10:28
DX: M71.22 Synovial cyst of popliteal space [Baker], left knee (principal); J44.9 Chronic obstructive pulmonary disease, unspecified; I10 Essential (primary) hypertension; K21.9 Gastro-esophageal reflux disease without esophagitis; F17.210 Nicotine dependence, cigarettes, uncomplicated; Z88.1 Allergy status to other antibiotic agents; Z88.8 Allergy status to other drugs, medicaments and biological substances
CPT/HCPCS: 93971; 96372; 99284; J2270

== ENCOUNTER → 2017-08-29 | Outpatient (CLI) | payer MEDICARE ==
[2017-08-26 13:50] VITALS: BP 137/72
--- NOTE | 2017-08-29 12:19 | RAD ---
Left knee, 3 views, 08/29/2017: HISTORY: Chronic knee pain There is mild bony demineralization. There is minimal joint space narrowing medially. No fracture or dislocation is identified. No joint effusion is seen. Scattered arterial calcifications are present. IMPRESSION: No acute left knee abnormality is detected. Electronically signed by: Selwyn Bliss MD (08/29/2017 12:15 PM) [facility]
== END | disposition home or self-care (01) ==
LOC: PMG 10:40
PROVIDERS: ATTEND Family Medicine
DX: M81.8 Other osteoporosis without current pathological fracture (principal); I10 Essential (primary) hypertension; J44.9 Chronic obstructive pulmonary disease, unspecified; K21.9 Gastro-esophageal reflux disease without esophagitis
CPT/HCPCS: 73560

== ENCOUNTER → 2017-11-29 | Outpatient (CLI) | payer MEDICARE ==
--- NOTE | 2017-11-30 14:23 | RAD ---
History: Routine screening. Technique: Bilateral digital mammographic routine views were obtained with CAD - computer aided detection. Comparison: None. Findings: Breast Tissue Density B :The breast tissue is composed of mixed fatty and fibroglandular tissue. There are no suspicious masses, microcalcifications or areas of architectural distortion. Impression: Negative mammogram. BI-RADS Category 1: Negative. Recommendation: In the absence of new clinical symptoms or change in physical exam, annual screening mammography is recommended. A mammogram does not have 100% sensitivity and therefore a negative imaging study should not delay further work up of a suspicious abnormality. The patient will receive a letter with the results in the mail. Patient information is entered into the reminder system with a target due date for the next screening mammogram. The patient will receive a reminder. "Our facility is accredited by the [employer] Mammography Program."
== END | disposition home or self-care (01) ==
LOC: MAMMO 12:49
PROVIDERS: ATTEND Family Medicine
DX: Z12.31 Encounter for screening mammogram for malignant neoplasm of breast (principal); I10 Essential (primary) hypertension; J44.9 Chronic obstructive pulmonary disease, unspecified; K21.9 Gastro-esophageal reflux disease without esophagitis; Z90.722 Acquired absence of ovaries, bilateral; Z90.49 Acquired absence of other specified parts of digestive tract; Z86.718 Personal history of other venous thrombosis and embolism; Z87.891 Personal history of nicotine dependence; Z82.49 Family history of ischemic heart disease and other diseases of the circulatory system; Z82.5 Family history of asthma and other chronic lower respiratory diseases
CPT/HCPCS: 77063; 77067

== ENCOUNTER 2017-12-30 20:05 | Inpatient (IN) | payer MEDICARE ==
[~2017-12-30] VITALS: Ht 160 cm; Wt 72.8 kg
[~2017-12-30 20:05] MED LIST changes: -LOSA50TA6 PO; +LOSA50TA7 PO
--- NOTE | 2017-12-30 20:07 | ED.ADGEN ---
Past History Past Medical History: COPD, GERD, Hypertension, Other Additional Past Medical Histor: alpha-1 antitrypsan; Piedad's granulomatous Past Surgical History: Appendectomy, Hysterectomy Smoking: Cigarettes Alcohol Use: None Drug Use: None Adult General Chief Complaint Chief Complaint ".. I ve been sick for 3 weeks.. now.. on three different antibiotics... a different antibiotic every week.. I much more short of breath today.. I got Lidia's, COPD,...Alpha 1 antitrypsin def. . plus GERD.. .. I am so bad.. I almost have to quid smoking..." HPI HPI Patient is a 67 year old female who presents with above hx and complaints sever shortness of breath, fever , chills and fatigue tonight. Pt. has had 3 separate courses of antibiotics over the past 3 weeks. Patient has long history of COPD, Piedad's, bronchitis, and tobacco abuse. Patient has been followed by rheumatology for her Piedad's and is on immunosuppression. Patient currently getting 5 mg of prednisone daily. Patient also takes Xarelto as anticoagulant. Patient denies any specific ill contacts. Patient denies any travel. Patient denies any trauma. Patient normally follows with Dr. Cai. Review of Systems Review of Systems Constitutional: Complains of fever or chills [] Eyes: Denies change in visual acuity, redness, or eye pain [] HENT: Denies nasal congestion or sore throat [] Respiratory: Complains of cough and shortness of breath [] Cardiovascular: No additional information not addressed in HPI [] GI: Denies abdominal pain, nausea, vomiting, bloody stools or diarrhea [] : Denies dysuria or hematuria [] Musculoskeletal: Denies back pain or joint pain []complaints of generalized weakness Integument: Denies rash or skin lesions [] Neurologic: Denies headache, focal weakness or sensory changes [] Endocrine: Denies polyuria or polydipsia [] All other systems were reviewed and found to be within normal limits, except as documented in this note. Family History Family History Noncontributory Current Medications Current Medications Current Medications Medications (Trade) Dose Ordered Sig/Rio Start Time Stop Time Status Last Admin Dose Admin Albuterol/ Ipratropium (Duoneb) 3 ml 1X ONCE 9/14/18 21:00 12/30/17 21:01 DC 12/30/17 20:40 3 ML Aspirin (Children'S Aspirin) 324 mg 1X ONCE 12/30/17 21:00 12/30/17 21:01 DC 12/30/17 20:53 324 MG Azithromycin (Zithromax) 500 mg 1X ONCE 12/30/17 21:00 12/30/17 21:01 DC 12/30/17 20:53 500 MG Ceftriaxone Sodium 1 gm/ Sodium Chloride 50 ml @ 100 mls/hr 1X ONCE 12/30/17 21:00 12/30/17 21:29 DC 12/30/17 20:52 100 MLS/HR Ceftriaxone Sodium (Rocephin) 1 gm STK-MED ONCE 12/30/17 20:47 12/30/17 20:48 DC Lactated Ringer's 1,000 ml @ 100 mls/hr Q10H 12/30/17 20:24 12/31/17 06:23 12/30/17 20:51 100 MLS/HR Methylprednisolone Sodium Succinate (SOLU-Medrol 125MG VIAL) 125 mg 1X ONCE 12/30/17 21:00 12/30/17 21:01 DC 12/30/17 20:53 125 MG Sodium Chloride 50 ml @ As Directed STK-MED ONCE 12/30/17 20:47 12/30/17 20:48 DC See nursing for home meds Allergies Allergies Allergies Coded Allergies Type Severity Reaction Last Updated Verified doxycycline Allergy Intermediate 02/23/17 Yes methotrexate Allergy Intermediate 02/23/17 Yes Physical Exam Physical Exam Constitutional:in acute distress, non-toxic appearance. [] HENT: Normocephalic, atraumatic, bilateral external ears normal, oropharynx moist, no oral exudates, nose rhinorrhea Eyes: PERRLA, EOMI, conjunctiva normal, no discharge. [] Neck: Normal range of motion, no tenderness, supple, no stridor. [] Cardiovascular: Tachycardia Heart rate, irregular regular rhythm, no murmur [] PMI to the left. Frequent PVCs per monitor Lungs & Thorax: Bilateral breath sounds wheezing throughout. Some basilar rhonchi on auscultation []intercostal retractions. Tripod position. Severe prolonged episodes of coughing spasms. Abdomen: Bowel sounds normal, soft, no tenderness, no masses, no pulsatile masses. [] Old surgery scars. Skin: Warm, diaphoretic, no erythema, no rash. [] Back: No tenderness, no CVA tenderness. [] Extremities: No tenderness, mild fingers and toe scyanosis, no clubbing, ROM intact, no edema. [] No cording appreciated Neurologic: Alert and oriented X 3, generalized weakness but moves all extremities on request, normal sensory function, no focal deficits noted. [] DTRs +2 at brachial and patella. Psychologic: Affect very anxious, judgement normal, mood depressed. Current Patient Data Vital Signs Vital Signs Date Time Temp Pulse Resp B/P (MAP) Pulse Ox O2 Delivery O2 Flow Rate FiO2 12/30/17 20:43 91 Room Air 12/30/17 20:39 86 22 114/57 (76) 12/30/17 20:15 98.5 Lab Results Laboratory Tests Test 12/30/17 20:25 12/30/17 20:55 White Blood Count 12.5 x10^3/uL (4.0-11.0) H Red Blood Count 5.21 x10^6/uL (3.50-5.40) Hemoglobin 15.2 g/dL (12.0-15.5) Hematocrit 47.0 % (36.0-47.0) Mean Corpuscular Volume 90 fL (79-100) Mean Corpuscular Hemoglobin 29 pg (25-35) Mean Corpuscular Hemoglobin Concent 32 g/dL (31-37) Red Cell Distribution Width 14.6 % (11.5-14.5) H Platelet Count 207 x10^3/uL (140-400) Neutrophils (%) (Auto) 63 % (31-73) Lymphocytes (%) (Auto) 24 % (24-48) Monocytes (%) (Auto) 10 % (0-9) H Eosinophils (%) (Auto) 3 % (0-3) Basophils (%) (Auto) 1 % (0-3) Neutrophils # (Auto) 7.8 x10^3uL (1.8-7.7) H Lymphocytes # (Auto) 3.0 x10^3/uL (1.0-4.8) Monocytes # (Auto) 1.2 x10^3/uL (0.0-1.1) H Eosinophils # (Auto) 0.3 x10^3/uL (0.0-0.7) Basophils # (Auto) 0.1 x10^3/uL (0.0-0.2) Erythrocyte Sedimentation Rate 7 (0-25) Prothrombin Time 9.7 SEC (9.4-11.4) Prothrombin Time INR 1.0 (0.9-1.1) PTT 27 SEC (23-33) D-Dimer (Nancy) 0.45 mg/L (0.00-0.50) Sodium Level 137 mmol/L (136-145) Potassium Level 4.1 mmol/L (3.5-5.1) Chloride Level 104 mmol/L (98-107) Carbon Dioxide Level 24 mmol/L (21-32) Anion Gap 9 (6-14) Blood Urea Nitrogen 13 mg/dL (7-20) Creatinine 1.0 mg/dL (0.6-1.0) Estimated GFR (Cockcroft-Gault) 55.5 Glucose Level 91 mg/dL (70-99) Lactic Acid Level 1.1 mmol/L (0.4-2.0) Calcium Level 8.9 mg/dL (8.5-10.1) Magnesium Level 2.3 mg/dL (1.8-2.4) Total Bilirubin 0.3 mg/dL (0.2-1.0) Direct Bilirubin 0.1 mg/dL (0.0-0.2) Aspartate Amino Transferase (AST) 16 U/L (15-37) Alanine Aminotransferase (ALT) 29 U/L (14-59) Alkaline Phosphatase 116 U/L (46-116) Creatine Kinase 80 U/L (26-192) Troponin I Quantitative < 0.017 ng/mL (0-0.055) HJ-[id number]-S-Type Natriuretic Peptide 58 pg/mL (0-124) Total Protein 7.0 g/dL (6.4-8.2) Albumin 3.7 g/dL (3.4-5.0) Lipase 313 U/L (73-393) Blood pH 7.39 (7.35-7.45) Blood Gas PCO2 32 mmHg (35-45) L Blood Gas PO2 59 mmHg (80-100) L Blood Gas HCO3 19 mmol/L (22-26) L Arterial Bld O2 Saturation (Calc) 90 % (92-99) L FiO2 21 % EKG EKG My interpretation EKG shows a sinus rhythm at 85 bpm. There are PVCs. Her also. Return if cool complexes. There is a strain pattern contour abnormality. There is some nonspecific inferior changes. But no findings acute STEMI with contralateral changes[] Radiology/Procedures Radiology/Procedures My interpretation of chest x-ray shows[] hilar adenopathy. Findings of emphysema. No obvious large pneumonia consolidation. CT chest shows no findings of central PEs. No obvious pneumonia. Does have right hilar adenopathy. Central lobar emphysema. Course & Med Decision Making Course & Med Decision Making Pertinent Labs and Imaging studies reviewed. (See chart for details). Discussed presentation, testing and treatment plan with Dr. Rivera.. Will admit for further evaluation and treatment. [] Final Impression Final Impression 1. Respiratory failure 2. Tobacco Abuse 3. COPD exacerbation 4. Piedad's 5. Hypertension 6. GERD 7. Leukocytosis 8. History of Alpha 1 deficiency Dragon Disclaimer Dragon Disclaimer This electronic medical record was generated, in whole or in part, using a voice recognition dictation system. MIGUEL ANGEL HAN MD Dec 30, 2017 20:07
[2017-12-30] MEDS ORDERED: IV RINGERS SOLUTION,LACTATED 1,000 ML IV SCH (20:24)
[2017-12-30 20:43] LABS: BASO # 0.1 x10^3/uL (0.0-0.2); BASO % 1 % (0-3); EOS # 0.3 x10^3/uL (0.0-0.7); EOS % 3 % (0-3); HEMOGLOBIN 15.2 g/dL (12.0-15.5); LYMPH % 24 % (24-48); MEAN CORPUSCULAR HEMOGLOBIN 29 pg (25-35); MEAN CORPUSCULAR HGB CONC 32 g/dL (31-37); MEAN CORPUSCULAR VOLUME 90 fL (79-100); MONO # 1.2 x10^3/uL (0.0-1.1); MONO % 10 % (0-9); NEUT # 7.8 x10^3uL (1.8-7.7); NEUT % 63 % (31-73); PLATELET COUNT 207 x10^3/uL (140-400); RED BLOOD COUNT 5.21 x10^6/uL (3.50-5.40); RED CELL DISTRIBUTION WIDTH 14.6 % (11.5-14.5); WHITE BLOOD COUNT 12.5 x10^3/uL (4.0-11.0)
[2017-12-30] MEDS ORDERED: IV NORMAL SALINE 50ML 50 ML ONE (20:47)
[2017-12-30] MEDS ORDERED: cefTRIAXone SODIUM 1 GM VIAL IV ONE (20:47)
[2017-12-30] MEDS ORDERED: IPRATRPIUM/ALBUTEROL 0.5/2.5MG 3 ML NEBU. NEB ONE (21:00)
[2017-12-30] MEDS ORDERED: AZITHROMYCIN 250 MG TABLET. PO ONE (21:00)
[2017-12-30] MEDS ORDERED: ASPIRIN 81 MG TAB.CHEW PO ONE (21:00)
[2017-12-30] MEDS ORDERED: methylPREDNISolone SOD SUCC PF 125 MG/2 ML VIAL. IV ONE (21:00)
[2017-12-30 21:06] LABS: ALBUMIN 3.7 g/dL (3.4-5.0); CALCIUM 8.9 mg/dL (8.5-10.1); DIRECT BILIRUBIN 0.1 mg/dL (0.0-0.2); GFR 55.5; MAGNESIUM 2.3 mg/dL (1.8-2.4); POTASSIUM 4.1 mmol/L (3.5-5.1); TOTAL BILIRUBIN 0.3 mg/dL (0.2-1.0)
[2017-12-30 21:12] LABS: BGAS PH 7.39 (7.35-7.45)
[2017-12-30] MEDS ORDERED: CONTRAST GIVEN MC PRN (21:30)
[2017-12-30] MEDS ORDERED: ONDANSETRON PF 4 MG/2 ML VIAL. IV PRN (21:30)
[2017-12-30] MEDS ORDERED: IOHEXOL 300 MG/ML 75 ML VIAL. IV ONE (21:45)
[2017-12-30 21:51] LABS: SEDIMENTATION RATE 7 (0-25)
[2017-12-30] MEDS: FAMOTIDINE 20 MG TABLET PO SCH (22:00)
--- NOTE | 2017-12-30 22:03 | EKG ---
[address] [address] Test Date: 2017-12-30 Test Time: 20:26:48 Pat Name: LEE BELL Department: Room: Gender: F Cut Out Marker: : 1950 Requested By: MIGUEL ANGEL AHN Order Number: [id number] Reading MD: Barry Waite Measurements Intervals [place] Rate: 85 P: 70 MI: 156 QRS: 63 QRSD: 78 T: 85 QT: 330 QTc: 398 Interpretive Statements SINUS RHYTHM ATRIAL PREMATURE COMPLEX(ES) Electronically Signed On 01-02-2018 11:10:49 CDT by Barry Waite
--- NOTE | 2017-12-30 22:51 | RAD ---
PQRS Compliance statement: One or more of the following individualized dose reduction techniques were utilized for this examination: 1. Automated exposure control. 2. Adjustment of the mA and/or kV according to patient size. 3. Use of iterative reconstruction technique. Indication:Respiratory failure. Dyspnea.. Hx COPD, Hickman Syndrome TECHNIQUE: CT angiogram of the chest with IV contrast with multiplanar MIP reformats. COMPARISON:None FINDINGS: Slightly suboptimal PE study due to contrast bolus timing. No central or segmental PE. Evaluation of subsegmental arteries is limited. Heart is normal in size. No pericardial or pleural effusion. Coronary artery calcifications. Clear neck base. No axillary or mediastinal adenopathy. Mildly enlarged 1.3 x 1.1 cm right hilar lymph node. Mild atherosclerotic disease seen of the aortic arch and in the region of the arch vessels. The visualized sections through the liver, spleen, gallbladder, pancreas, kidneys within normal limits. Diffuse bilateral thickening of the abdomen glands most likely secondary to adenomatous hyperplasia. Mild diffuse centrilobular emphysema. Central airways are patent. No focal consolidation in the lungs or interstitial abnormalities. No suspicious bony lesion. IMPRESSION: 1. Slightly suboptimal PE study due to contrast bolus timing. No central or segmental PE. Evaluation of subsegmental arteries is limited. 2. No pneumonia. 3. Mildly enlarged right hilar lymph node, nonspecific most likely reactive. Electronically signed by: Viral Sandoval DO (12/30/2017 10:48 PM) [facility]
[2017-12-30 23:12] VITALS: BP 123/77
[2017-12-31] MEDS ORDERED: GABA300C8 PO (00:14)
[2017-12-31] MEDS ORDERED: APIX5TAB3 PO (00:15)
[2017-12-31 00:22] LABS: BARBITURATES NEG (NEG); BENZODIAZEPINES NEG (NEG); CANNABINOIDS POS (NEG); COCAINE NEG (NEG); METHADONE NEG (NEG); OPIATES NEG (NEG); PHENCYCLIDINE NEG (NEG)
[2017-12-31 00:24] LABS: AMPHETAMINE/METHAMPHETAMINE NEG (NEG)
[2017-12-31] MEDS ORDERED: LOSA100T7 PO (00:30)
[2017-12-31 00:32] LABS: BACTERIA,URINE FEW /HPF (0-FEW); BILIRUBIN,URINE NEG (NEG); CLARITY,URINE CLEAR; COLOR,URINE YELLOW; GLUCOSE,URINE NEG (NEG); NITRITE,URINE NEG (NEG); RBC,URINE RARE /HPF (0-2); SQUAMOUS EPITHELIAL CELL,UR OCC /LPF; UROBILINOGEN,URINE 0.2 mg/dL (0.2 mg/dL); WBC,URINE OCC /HPF (0-4)
[2017-12-31] MEDS ORDERED: PRED2.5T PO (00:32)
[2017-12-31] MEDS: IPRATRPIUM/ALBUTEROL 0.5/2.5MG 3 ML NEBU. NEB SCH ×4 (05:23→20:34)
[2017-12-31 05:44] VITALS: BP 128/71
[2017-12-31 06:41] LABS: BASO % 0 % (0-3); EOS % 0 % (0-3); HEMATOCRIT 43.6 % (36.0-47.0); HEMOGLOBIN 14.3 g/dL (12.0-15.5); LYMPH # 0.9 x10^3/uL (1.0-4.8); LYMPH % 12 % (24-48); MEAN CORPUSCULAR HEMOGLOBIN 30 pg (25-35); MEAN CORPUSCULAR HGB CONC 33 g/dL (31-37); MEAN CORPUSCULAR VOLUME 90 fL (79-100); MONO # 0.1 x10^3/uL (0.0-1.1); MONO % 1 % (0-9); NEUT # 6.7 x10^3uL (1.8-7.7); NEUT % 87 % (31-73); PLATELET COUNT 180 x10^3/uL (140-400); RED BLOOD COUNT 4.83 x10^6/uL (3.50-5.40); RED CELL DISTRIBUTION WIDTH 14.7 % (11.5-14.5); WHITE BLOOD COUNT 7.6 x10^3/uL (4.0-11.0)
[2017-12-31 06:46] LABS: CALCIUM 8.8 mg/dL (8.5-10.1); CREATININE 0.9 mg/dL (0.6-1.0); GFR 62.6; POTASSIUM 4.5 mmol/L (3.5-5.1)
[2017-12-31] MEDS ORDERED: methylPREDNISolone SOD SUCC PF 125 MG/2 ML VIAL. IV SCH (09:00)
[2017-12-31] MEDS: FAMOTIDINE 20 MG TABLET PO SCH ×2 (09:22→20:05)
[2017-12-31] MEDS: LACTOBACILLUS RHAMNOSUS GG 1 CAPSULE. PO SCH ×2 (09:22→20:06)
[2017-12-31] MEDS: AZITHROMYCIN 250 MG TABLET. PO SCH (09:23)
--- NOTE | 2017-12-31 10:40 | RAD ---
Chest, 2 views, 12/30/2017: History: Respiratory failure Comparison is made to a study from 02/22/2017. The heart size is normal. Emphysematous changes are evident in the upper lobes. There are scattered parenchymal scars. No acute bony consolidation is seen. The lungs are hyperexpanded. There is no evidence of pleural fluid. Mild spurring is present in the spine. IMPRESSION: 1. Emphysema with parenchymal scarring. 2. No acute abnormality is detected.
[2017-12-31 11:00] VITALS: BP 128/67
--- NOTE | 2017-12-31 14:07 | PDOC1 ---
History of Present Illness History of Present Illness Patient is a 67 year old female who presents with complaints severe shortness of breath, fever , chills and fatigue. She's taken separate courses of antibiotics over the past 3 weeks. Patient has long history of COPD, Piedad's, bronchitis, and tobacco abuse. Patient has been followed by rheumatology for her Piedad's and is on immunosuppression. Patient currently getting 5 mg of prednisone daily. Patient also takes Xarelto as anticoagulant. Patient denies any specific ill contacts. Patient denies any travel. Patient denies any trauma. Patient normally follows with Dr. Lechuga. Her EKG revealed normal sinus rhythm 85 bpm with PVCs and strain pattern, chest x-ray revealed COPD changes, CTA of the chest: 1. Slightly suboptimal PE study due to contrast bolus timing. No central or segmental PE. Evaluation of subsegmental arteries is limited.2. No pneumonia. 3. Mildly enlarged right hilar lymph node, nonspecific most likely reactive. WBCs 12.5, d-dimer 0.45, urinalysis unremarkable, urine drug screen positive for cannabinoids, CMP , lipase, TSH, and lactic acid all normal. Arterial blood gas O2 sat 90% on room air. She was treated with intravenous Solu-Medrol and nebulizer treatments as well as intravenous Rocephin and Zithromax. Today I find her sitting up in bed eating lunch. She has conversational dyspnea and a scattered dry cough but states she's feeling better. She is able to breathe a little more deeply however states she is significantly. Compared to her baseline. She does 2.5 to 3 L of O2 at home. She's been afebrile O2 sats ranging from 91-95% on 2 L of O2. She denies any chest pain or nausea, no new or worsening complaints. 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 See HPI for pertinent positives and negative responses, other ricks all other systems are negative, non pertinent or non contributory Medications Current Medications Aspirin (Children'S Aspirin) 324 mg 1X ONCE PO Last administered on 12/30/17at 20:53; Start 12/30/17 at 21:00; Stop 12/30/17 at 21:01; Status DC Lactated Ringer's 1,000 ml @ 100 mls/hr Q10H IV Last administered on at 20:51; Start 12/30/17 at 20:24; Stop 12/31/17 at 06:23; Status DC Ceftriaxone Sodium 1 gm/ Sodium Chloride 50 ml @ 100 mls/hr 1X ONCE IV Last administered on 12/30/17at 20:52; Start 12/30/17 at 21:00; Stop 12/30/17 at 21:29 ; Status DC Azithromycin (Zithromax) 500 mg 1X ONCE PO Last administered on 12/30/17at 20: 53; Start 12/30/17 at 21:00; Stop 12/30/17 at 21:01; Status DC Methylprednisolone Sodium Succinate (SOLU-Medrol 125MG VIAL) 125 mg 1X ONCE IV Last administered on 12/30/17at 20:53; Start 12/30/17 at 21:00; Stop 12/30/17 at 21:01; Status DC Albuterol/ Ipratropium (Duoneb) 3 ml 1X ONCE NEB Last administered on at 20:40; Start 12/30/17 at 21:00; Stop 12/30/17 at 21:01; Status DC Sodium Chloride 50 ml @ As Directed STK-MED ONCE .ROUTE ; Start 12/30/17 at 20: 47; Stop 12/30/17 at 20:48; Status DC Ceftriaxone Sodium (Rocephin) 1 gm STK-MED ONCE IV ; Start 12/30/17 at 20:47; Stop 12/30/17 at 20:48; Status DC Iohexol (Omnipaque 300 Mg/ml) 75 ml 1X ONCE IV Last administered on 12/30/17at 21:47; Start 12/30/17 at 21:45; Stop 12/30/17 at 21:46; Status DC Info (Do NOT chart on this entry -- for MONITORING) 1 each PRN DAILY PRN MC SEE COMMENTS; Start 12/30/17 at 21:30; Stop 01/01/18 at 21:29 Ondansetron HCl (Zofran) 4 mg PRN Q4HRS PRN IV NAUSEA/VOMITING; Start 12/30/17 at 21:30; Stop 12/31/17 at 21:29 Albuterol/ Ipratropium (Duoneb) 3 ml RTQID NEB Last administered on 12/31/17at 10:34; Start 12/31/17 at 08:00; Stop 01/01/18 at 07:59 Methylprednisolone Sodium Succinate (SOLU-Medrol 125MG VIAL) 125 mg DAILY IV Last administered on 12/31/17at 09:22; Start 12/31/17 at 09:00 Azithromycin (Zithromax) 250 mg DAILY PO Last administered on 12/31/17at 09:23; Start 12/31/17 at 09:00 Ceftriaxone Sodium 1 gm/ Sodium Chloride 50 ml @ 100 mls/hr QHS IV ; Start at 21:00 Famotidine (Pepcid) 20 mg BID PO Last administered on 12/31/17at 09:22; Start at 22:00 Lactobacillus Rhamnosus (Culturelle) 1 cap BID PO Last administered on at 09:22; Start 12/31/17 at 09:00 Active Scripts Active Reported Prednisone 2.5 Mg Tablet 5 Mg PO DAILY Losartan Potassium 100 Mg Tablet 1 Tab PO DAILY Eliquis (Apixaban) 5 Mg Tablet 5 Mg PO BID Gabapentin 300 Mg Capsule 1 Cap PO TID Pramipexole Dihydrochloride (Pramipexole Di-Hcl) 0.5 Mg Tablet 0.5 Mg PO HS Cyclobenzaprine Hcl 10 Mg Tablet 1 Tab PO BID Citalopram Hbr (Citalopram Hydrobromide) 40 Mg Tablet 40 Mg PO DAILY Tramadol Hcl (Tramadol HCl) 50 Mg Tablet 50 Mg PO PRN Q6HRS PRN Protonix (Pantoprazole Sodium) 40 Mg Tablet.dr 1 Tab PO DAILY Klor-Con M20 (Potassium Chloride) 20 Meq Tab.er.prt 2 Tab PO BID Cellcept (Mycophenolate Mofetil) 500 Mg Tablet 2 Tab PO BID Breo Ellipta 100-25 Mcg Inh (Fluticasone/Vilanterol) 1 Each Aer.pow.ba 1 Puff IH DAILY Exam Vital Signs Vital Signs Date Time Temp Pulse Resp B/P (MAP) Pulse Ox O2 Delivery O2 Flow Rate FiO2 12/31/17 11:00 97.3 86 128/67 (87) 91 Nasal Cannula 2.0 12/31/17 05:44 24 General Appearance: Alert, Oriented X3, No acute distress (conversational dyspnea) HEENT: Atraumatic, PERRLA, EOMI, Mucous membr. moist/pink Respiratory: Other (bilaterally decreased breath sounds with prolonged expiratory wheezes) Heart: Regular rate, No murmurs Abdominal: Soft, No tenderness Extremities: No clubbing, No cyanosis, No edema Neuro: Normal speech, Normal tone, Cranial nerves 3-12 NL Psych/Mental Status: Mental status NL, Mood NL Assessment/Plan Assessment/Plan Respiratory failure COPD exacerbation Tobacco abuse Marijuana abuse Continue 4 times a day duo nebs with when necessary albuterol nebs, increase Solu-Medrol 125 mg IV to every 8 hours. I do not see a need at this point to continue antibiotics as she's been on an antibiotic for the past 3 weeks. COURSE Allergies Coded Allergies Type Severity Reaction Last Updated Verified doxycycline Allergy Intermediate 02/23/17 Yes methotrexate Allergy Intermediate 02/23/17 Yes Laboratory Tests Test 12/30/17 20:25 12/30/17 20:55 12/30/17 23:39 12/31/17 06:06 White Blood Count 12.5 x10^3/uL (4.0-11.0) 7.6 x10^3/uL (4.0-11.0) Red Blood Count 5.21 x10^6/uL (3.50-5.40) 4.83 x10^6/uL (3.50-5.40) Hemoglobin 15.2 g/dL (12.0-15.5) 14.3 g/dL (12.0-15.5) Hematocrit 47.0 % (36.0-47.0) 43.6 % (36.0-47.0) Mean Corpuscular Volume 90 fL (79-100) 90 fL (79-100) Mean Corpuscular Hemoglobin 29 pg (25-35) 30 pg (25-35) Mean Corpuscular Hemoglobin Concent 32 g/dL (31-37) 33 g/dL (31-37) Red Cell Distribution Width 14.6 % (11.5-14.5) 14.7 % (11.5-14.5) Platelet Count 207 x10^3/uL (140-400) 180 x10^3/uL (140-400) Neutrophils (%) (Auto) 63 % (31-73) 87 % (31-73) Lymphocytes (%) (Auto) 24 % (24-48) 12 % (24-48) Monocytes (%) (Auto) 10 % (0-9) 1 % (0-9) Eosinophils (%) (Auto) 3 % (0-3) 0 % (0-3) Basophils (%) (Auto) 1 % (0-3) 0 % (0-3) Neutrophils # (Auto) 7.8 x10^3uL (1.8-7.7) 6.7 x10^3uL (1.8-7.7) Lymphocytes # (Auto) 3.0 x10^3/uL (1.0-4.8) 0.9 x10^3/uL (1.0-4.8) Monocytes # (Auto) 1.2 x10^3/uL (0.0-1.1) 0.1 x10^3/uL (0.0-1.1) Eosinophils # (Auto) 0.3 x10^3/uL (0.0-0.7) 0.0 x10^3/uL (0.0-0.7) Basophils # (Auto) 0.1 x10^3/uL (0.0-0.2) 0.0 x10^3/uL (0.0-0.2) Erythrocyte Sedimentation Rate 7 (0-25) Prothrombin Time 9.7 SEC (9.4-11.4) Prothromb Time International Ratio 1.0 (0.9-1.1) Activated Partial Thromboplast Time 27 SEC (23-33) D-Dimer (Nancy) 0.45 mg/L (0.00-0.50) Sodium Level 137 mmol/L (136-145) 137 mmol/L (136-145) Potassium Level 4.1 mmol/L (3.5-5.1) 4.5 mmol/L (3.5-5.1) Chloride Level 104 mmol/L (98-107) 104 mmol/L (98-107) Carbon Dioxide Level 24 mmol/L (21-32) 22 mmol/L (21-32) Anion Gap 9 (6-14) 11 (6-14) Blood Urea Nitrogen 13 mg/dL (7-20) 16 mg/dL (7-20) Creatinine 1.0 mg/dL (0.6-1.0) 0.9 mg/dL (0.6-1.0) Estimated GFR (Cockcroft-Gault) 55.5 62.6 Glucose Level 91 mg/dL (70-99) 150 mg/dL (70-99) Lactic Acid Level 1.1 mmol/L (0.4-2.0) Calcium Level 8.9 mg/dL (8.5-10.1) 8.8 mg/dL (8.5-10.1) Magnesium Level 2.3 mg/dL (1.8-2.4) Total Bilirubin 0.3 mg/dL (0.2-1.0) Direct Bilirubin 0.1 mg/dL (0.0-0.2) Aspartate Amino Transf (AST/SGOT) 16 U/L (15-37) Alanine Aminotransferase (ALT/SGPT) 29 U/L (14-59) Alkaline Phosphatase 116 U/L (46-116) Creatine Kinase 80 U/L (26-192) Troponin I Quantitative < 0.017 ng/mL (0-0.055) SD-Qcx-U-Type Natriuretic Peptide 58 pg/mL (0-124) Total Protein 7.0 g/dL (6.4-8.2) Albumin 3.7 g/dL (3.4-5.0) Lipase 313 U/L (73-393) Thyroid Stimulating Hormone (TSH) 3.368 uIU/mL (0.358-3.740) Blood Gas pH 7.39 (7.35-7.45) Blood Gas PCO2 32 mmHg (35-45) Blood Gas PO2 59 mmHg (80-100) Blood Gas HCO3 19 mmol/L (22-26) Arterial Bld O2 Saturation (Calc) 90 % (92-99) FiO2 21 % Urine Collection Type Void Urine Color Yellow Urine Clarity Clear Urine pH 5.0 Urine Specific [place] <=1.005 Urine Protein Neg (NEG-TRACE) Urine Glucose (UA) Neg mg/dL (NEG) Urine Ketones (Stick) Neg mg/dL (NEG) Urine Blood Neg (NEG) Urine Nitrite Neg (NEG) Urine Bilirubin Neg (NEG) Urine Urobilinogen Dipstick 0.2 mg/dL (0.2 mg/dL) Urine Leukocyte Esterase Neg (NEG) Urine RBC Rare /HPF (0-2) Urine WBC Occ /HPF (0-4) Urine Squamous Epithelial Cells Occ /LPF Urine Bacteria Few /HPF (0-FEW) Urine Opiates Screen Neg (NEG) Urine Methadone Screen Neg (NEG) Urine Barbiturates Neg (NEG) Urine Phencyclidine Screen Neg (NEG) Urine Amphetamine/Methamphetamine Neg (NEG) Urine Benzodiazepines Screen Neg (NEG) Urine Cocaine Screen Neg (NEG) Urine Cannabinoids Screen Pos (NEG) Urine Ethyl Alcohol Neg (NEG) Current Medications Medications (Trade) Dose Ordered Sig/Rio Route PRN Reason Start Time Stop Time Status Last Admin Dose Admin Aspirin (Children'S Aspirin) 324 mg 1X ONCE PO 12/30/17 21:00 12/30/17 21:01 DC 12/30/17 20:53 Lactated Ringer's 1,000 ml @ 100 mls/hr Q10H IV 12/30/17 20:24 12/31/17 06:23 DC 12/30/17 20:51 Ceftriaxone Sodium 1 gm/ Sodium Chloride 50 ml @ 100 mls/hr 1X ONCE IV 12/30/17 21:00 12/30/17 21:29 DC 12/30/17 20:52 Azithromycin (Zithromax) 500 mg 1X ONCE PO 12/30/17 21:00 12/30/17 21:01 DC 12/30/17 20:53 Methylprednisolone Sodium Succinate (SOLU-Medrol 125MG VIAL) 125 mg 1X ONCE IV 12/30/17 21:00 12/30/17 21:01 DC 12/30/17 20:53 Albuterol/ Ipratropium (Duoneb) 3 ml 1X ONCE NEB 12/30/17 21:00 12/30/17 21:01 DC 12/30/17 20:40 Sodium Chloride 50 ml @ As Directed STK-MED ONCE .ROUTE 12/30/17 20:47 12/30/17 20:48 DC Ceftriaxone Sodium (Rocephin) 1 gm STK-MED ONCE IV 12/30/17 20:47 12/30/17 20:48 DC Iohexol (Omnipaque 300 Mg/ml) 75 ml 1X ONCE IV 12/30/17 21:45 12/30/17 21:46 DC 12/30/17 21:47 Info (Do NOT chart on this entry -- for MONITORING) 1 each PRN DAILY PRN MC SEE COMMENTS 12/30/17 21:30 01/01/18 21:29 Ondansetron HCl (Zofran) 4 mg PRN Q4HRS PRN IV NAUSEA/VOMITING 12/30/17 21:30 12/31/17 21:29 Albuterol/ Ipratropium (Duoneb) 3 ml RTQID NEB 12/31/17 08:00 01/01/18 07:59 12/31/17 10:34 Methylprednisolone Sodium Succinate (SOLU-Medrol 125MG VIAL) 125 mg DAILY IV 12/31/17 09:00 12/31/17 09:22 Azithromycin (Zithromax) 250 mg DAILY PO 12/31/17 09:00 12/31/17 09:23 Ceftriaxone Sodium 1 gm/ Sodium Chloride 50 ml @ 100 mls/hr QHS IV 12/31/17 21:00 Famotidine (Pepcid) 20 mg BID PO 12/30/17 22:00 12/31/17 09:22 Lactobacillus Rhamnosus (Culturelle) 1 cap BID PO 12/31/17 09:00 12/31/17 09:22 I & O 12/31/17 00:00 Intake Total 150 ml Output Total 250 ml Balance -100 ml Orders Procedure Category Date Status Time Vital Signs ER 12/30/17 Transmitted 20:24 Bp Monitoring ER 12/30/17 Transmitted 20:24 [place] Sifter And Miller ER 12/30/17 Transmitted 20:24 Continuous Pulse ER 12/30/17 Transmitted Oximetry 20:24 Temperature Monitoring ER 12/30/17 Transmitted 20:24 Saline Lock ER 12/30/17 Transmitted 20:24 Basic Metabolic Panel LAB 12/30/17 Complete 20:24 Cbc W Autodiff LAB 12/30/17 Complete 20:24 Troponin I LAB 12/30/17 Complete 20:24 Protime LAB 12/30/17 Complete 20:24 Creatine Kinase LAB 12/30/17 Complete 20:24 Lipase LAB 12/30/17 Complete 20:24 Hepatic Panel LAB 12/30/17 Complete 20:24 Magnesium LAB 12/30/17 Complete 20:24 Thyroid Stim Hormone LAB 12/30/17 Complete (Tsh) 20:24 D-Dimer LAB 12/30/17 Complete 20:24 Ua, Cult If Indicated LAB 12/30/17 Complete 20:24 Nt-Pro Bnp LAB 12/30/17 Complete 20:24 Drugs Of Abuse Ur LAB 12/30/17 Complete 20:24 Chest Pa & Lateral RAD 12/30/17 Resulted 20:24 Aspirin (Children's PHA 12/30/17 Complete Aspirin) 21:00 12 Lead Ekg EKG 12/30/17 Complete 20:24 Partial LAB 12/30/17 Complete Thromboplastin Time 20:[address] 12/30/17 Resulted 20:24 Pulse Oximetry: PRINCE 12/30/17 In Process Standing Order 20:24 Iv Ringers PHA 12/30/17 Complete Solution,Lactated (Iv 20:24 Blood Culture SARAH 12/30/17 In Process 20:24 Lactic Acid LAB 12/30/17 Complete 20:24 Sedimentation Rate LAB 12/30/17 Complete 20:24 Arterial Blood Gas LAB 12/30/17 Complete 20:24 Ceftriaxone Sodium PHA 12/30/17 Complete (Rocephin) 21:00 Azithromycin PHA 12/30/17 Complete (Zithromax) 21:00 Methylprednisolone PHA 12/30/17 Complete 125mg Vial (Solu-Medr 21:00 Ipratrpium/Albuterol PHA 12/30/17 Complete 0.5/2.5mg (Duoneb) 21:00 Airway Inhalation RT 12/30/17 Complete Treatment 20:29 Iv Normal Saline 50ml PHA 12/30/17 Complete (Iv Sodium Chlorid 20:47 Ceftriaxone Sodium PHA 12/30/17 Complete (Rocephin) 20:47 Iohexol 300 Mg/Ml PHA 12/30/17 Complete (Omnipaque 300 Mg/Ml) 21:45 Contrast Given (Do PHA 12/30/17 In Process Not Chart On This Ent 21:30 [place] Order ADT 12/30/17 Transmitted 21:20 Code Status CODE 12/30/17 Transmitted 21:20 Vital Signs, Per [facility] 12/30/17 In Process Protocol 21:20 Oxygen PRINCE 12/30/17 In Process 21:20 Advance Diet As PRINCE 12/30/17 In Process Tolerated 21:20 Ambulate With [facility] 12/30/17 In Process Assistance 21:20 Fall Precautions PRINCE 12/30/17 In Process 21:20 Cbc W Autodiff LAB 12/31/17 Complete 06:00 Basic Metabolic Panel LAB 12/31/17 Complete 06:00 Ondansetron Pf PHA 12/30/17 In Process (Zofran) 21:30 Neuro Check Q 4 Hrs PRINCE 12/30/17 In Process 21:20 Ipratrpium/Albuterol PHA 12/31/17 In Process 0.5/2.5mg (Duoneb) 08:00 Incentive Spirometry PRINCE 12/30/17 In Process 21:20 Pneumatic Compression PRINCE 12/30/17 In Process Device 21:20 Methylprednisolone PHA 12/31/17 In Process 125mg Vial (Solu-Medr 09:00 Azithromycin PHA 12/31/17 In Process (Zithromax) 09:00 Ceftriaxone Sodium PHA 12/31/17 In Process (Rocephin) 21:00 Glucose Poct Q6h PRINCE 12/30/17 In Process 21:20 Famotidine (Pepcid) PHA 12/30/17 In Process 22:00 Admit Orders ADT 12/30/17 Transmitted High Risk Dc CONS 12/30/17 Transmitted Readmission 23:44 Admission Screening CONS 12/30/17 Transmitted 23:44 Smoking Cessation RT 12/30/17 Complete 3-10 Min 23:44 Regular DIET 12/31/17 Transmitted Breakfast Airway Inhalation RT 12/31/17 Complete Treatment 09:00 Airway Inhalation RT 12/31/17 Complete Treatment 13:00 Airway Inhalation RT 12/31/17 Logged Treatment 17:00 Airway Inhalation RT 12/31/17 Logged Treatment 21:00 Airway Inhalation RT 01/01/18 Logged Treatment 09:00 Airway Inhalation RT 01/01/18 Logged Treatment 13:00 Airway Inhalation RT 01/01/18 Logged Treatment 17:00 Airway Inhalation RT 01/01/18 Logged Treatment 21:00 Airway Inhalation RT 01/02/18 Logged Treatment 09:00 Airway Inhalation RT 01/02/18 Logged Treatment 13:00 Airway Inhalation RT 01/02/18 Logged Treatment 17:00 Airway Inhalation RT 01/02/18 Logged Treatment 21:00 Airway Inhalation RT 01/03/18 Logged Treatment 09:00 Airway Inhalation RT 01/03/18 Logged Treatment 13:00 Airway Inhalation RT 01/03/18 Logged Treatment 17:00 Airway Inhalation RT 01/03/18 Logged Treatment 21:00 Airway Inhalation RT 01/04/18 Logged Treatment 09:00 Airway Inhalation RT 01/04/18 Logged Treatment 13:00 Airway Inhalation RT 01/04/18 Logged Treatment 17:00 Airway Inhalation RT 01/04/18 Logged Treatment 21:00 Airway Inhalation RT 01/05/18 Logged Treatment 09:00 Airway Inhalation RT 01/05/18 Logged Treatment 13:00 Airway Inhalation RT 01/05/18 Logged Treatment 17:00 Airway Inhalation RT 01/05/18 Logged Treatment 21:00 Airway Inhalation RT 01/06/18 Logged Treatment 09:00 Airway Inhalation RT 01/06/18 Logged Treatment 13:00 Airway Inhalation RT 01/06/18 Logged Treatment 17:00 Airway Inhalation RT 01/06/18 Logged Treatment 21:00 Airway Inhalation RT 01/07/18 Logged Treatment 09:00 Airway Inhalation RT 01/07/18 Logged Treatment 13:00 Airway Inhalation RT 01/07/18 Logged Treatment 17:00 Airway Inhalation RT 01/07/18 Logged Treatment 21:00 Lactobacillus PHA 12/31/17 In Process Rhamnosus Gg 09:00 Vital Signs Date Time Temp Pulse Resp B/P (MAP) Pulse Ox O2 Delivery O2 Flow Rate FiO2 12/31/17 11:00 97.3 86 128/67 (87) 91 Nasal Cannula 2.0 12/31/17 05:44 24 MISSY TAYLOR DO Dec 31, 2017 14:07
[2017-12-31] MEDS ORDERED: ALBUTEROL SULFATE 2.5 MG/3 ML NEBU. NEB PRN (14:15)
[2017-12-31 15:00] VITALS: BP 118/66
[2017-12-31] MEDS ORDERED: traMADol 50 MG TABLET PO PRN (19:00)
[2017-12-31 19:25] VITALS: BP 90/60
[2017-12-31] MEDS: MYCOPHENOLATE MOFETIL 500 MG TABLET. PO SCH (20:05)
[2017-12-31] MEDS: APIXABAN 5 MG TABLET. PO SCH (20:06)
[2017-12-31] MEDS: GABAPENTIN 300 MG CAPSULE. PO SCH (20:06)
[2017-12-31] MEDS: CYCLOBENZAPRINE 10 MG TABLET. PO SCH (20:06)
[2017-12-31] MEDS: methylPREDNISolone SOD SUCC PF 125 MG/2 ML VIAL. IV SCH (20:06)
[2017-12-31] MEDS ORDERED: PRAMIPEXOLE 0.5 MG TABLET. PO SCH (21:00)
[2017-12-31 22:08] VITALS: BP 110/66
[2018-01-01 05:05] VITALS: BP 147/79
[2018-01-01] MEDS: IPRATRPIUM/ALBUTEROL 0.5/2.5MG 3 ML NEBU. NEB SCH ×2 (05:49→10:46)
[2018-01-01] MEDS ORDERED: PANTOPRAZOLE 40 MG TABLET. PO SCH (07:30)
[2018-01-01] MEDS ORDERED: POTASSIUM CHLORIDE 20 MEQ TABLET.ER. PO SCH (08:00)
[2018-01-01] MEDS: FAMOTIDINE 20 MG TABLET PO SCH (08:20)
[2018-01-01] MEDS: GABAPENTIN 300 MG CAPSULE. PO SCH (08:20)
[2018-01-01] MEDS: CYCLOBENZAPRINE 10 MG TABLET. PO SCH (08:20)
[2018-01-01] MEDS: AZITHROMYCIN 250 MG TABLET. PO SCH (08:22)
[2018-01-01] MEDS: methylPREDNISolone SOD SUCC PF 125 MG/2 ML VIAL. IV SCH (08:22)
[2018-01-01] MEDS: LACTOBACILLUS RHAMNOSUS GG 1 CAPSULE. PO SCH (08:22)
[2018-01-01] MEDS: APIXABAN 5 MG TABLET. PO SCH (08:22)
[2018-01-01] MEDS: MYCOPHENOLATE MOFETIL 500 MG TABLET. PO SCH (08:24)
[2018-01-01] MEDS ORDERED: FLUTICASONE 50MCG/NASAL SPRAY 16GM BOTTLE. NS SCH (09:00)
[2018-01-01] MEDS ORDERED: CITALOPRAM 20 MG TABLET. PO SCH (09:00)
[2018-01-01] MEDS ORDERED: LOSARTAN 50 MG TABLET. PO SCH (09:00)
[2018-01-01 10:33] VITALS: BP 134/66
[2018-01-01] MEDS ORDERED: IPRATRPIUM/ALBUTEROL 0.5/2.5MG 3 ML NEBU. NEB SCH (12:00)
--- NOTE | 2018-01-01 12:37 | PDOC3 ---
Discharge Summary Visit Information Date of Admission: Dec 30, 2017 Date of Discharge: Jan 01, 2018 Admitting Diagnosis: respiratory failure, COPD exacerbation Final Diagnosis Problems Medical Problems: (1) Respiratory failure Status: Acute Brief Hospital Course Allergies Allergies Coded Allergies Type Severity Reaction Last Updated Verified doxycycline Allergy Intermediate 02/23/17 Yes methotrexate Allergy Intermediate 02/23/17 Yes Vital Signs Vital Signs Date Time Temp Pulse Resp B/P (MAP) Pulse Ox O2 Delivery O2 Flow Rate FiO2 01/01/18 10:47 96 Nasal Cannula 2.0 01/01/18 10:33 98.0 82 20 134/66 (88) Lab Results Laboratory Tests Test 12/30/17 20:25 12/30/17 20:55 12/30/17 23:39 12/31/17 06:06 White Blood Count 12.5 x10^3/uL (4.0-11.0) 7.6 x10^3/uL (4.0-11.0) Red Blood Count 5.21 x10^6/uL (3.50-5.40) 4.83 x10^6/uL (3.50-5.40) Hemoglobin 15.2 g/dL (12.0-15.5) 14.3 g/dL (12.0-15.5) Hematocrit 47.0 % (36.0-47.0) 43.6 % (36.0-47.0) Mean Corpuscular Volume 90 fL (79-100) 90 fL (79-100) Mean Corpuscular Hemoglobin 29 pg (25-35) 30 pg (25-35) Mean Corpuscular Hemoglobin Concent 32 g/dL (31-37) 33 g/dL (31-37) Red Cell Distribution Width 14.6 % (11.5-14.5) 14.7 % (11.5-14.5) Platelet Count 207 x10^3/uL (140-400) 180 x10^3/uL (140-400) Neutrophils (%) (Auto) 63 % (31-73) 87 % (31-73) Lymphocytes (%) (Auto) 24 % (24-48) 12 % (24-48) Monocytes (%) (Auto) 10 % (0-9) 1 % (0-9) Eosinophils (%) (Auto) 3 % (0-3) 0 % (0-3) Basophils (%) (Auto) 1 % (0-3) 0 % (0-3) Neutrophils # (Auto) 7.8 x10^3uL (1.8-7.7) 6.7 x10^3uL (1.8-7.7) Lymphocytes # (Auto) 3.0 x10^3/uL (1.0-4.8) 0.9 x10^3/uL (1.0-4.8) Monocytes # (Auto) 1.2 x10^3/uL (0.0-1.1) 0.1 x10^3/uL (0.0-1.1) Eosinophils # (Auto) 0.3 x10^3/uL (0.0-0.7) 0.0 x10^3/uL (0.0-0.7) Basophils # (Auto) 0.1 x10^3/uL (0.0-0.2) 0.0 x10^3/uL (0.0-0.2) Erythrocyte Sedimentation Rate 7 (0-25) Prothrombin Time 9.7 SEC (9.4-11.4) Prothromb Time International Ratio 1.0 (0.9-1.1) Activated Partial Thromboplast Time 27 SEC (23-33) D-Dimer (Nancy) 0.45 mg/L (0.00-0.50) Sodium Level 137 mmol/L (136-145) 137 mmol/L (136-145) Potassium Level 4.1 mmol/L (3.5-5.1) 4.5 mmol/L (3.5-5.1) Chloride Level 104 mmol/L (98-107) 104 mmol/L (98-107) Carbon Dioxide Level 24 mmol/L (21-32) 22 mmol/L (21-32) Anion Gap 9 (6-14) 11 (6-14) Blood Urea Nitrogen 13 mg/dL (7-20) 16 mg/dL (7-20) Creatinine 1.0 mg/dL (0.6-1.0) 0.9 mg/dL (0.6-1.0) Estimated GFR (Cockcroft-Gault) 55.5 62.6 Glucose Level 91 mg/dL (70-99) 150 mg/dL (70-99) Lactic Acid Level 1.1 mmol/L (0.4-2.0) Calcium Level 8.9 mg/dL (8.5-10.1) 8.8 mg/dL (8.5-10.1) Magnesium Level 2.3 mg/dL (1.8-2.4) Total Bilirubin 0.3 mg/dL (0.2-1.0) Direct Bilirubin 0.1 mg/dL (0.0-0.2) Aspartate Amino Transf (AST/SGOT) 16 U/L (15-37) Alanine Aminotransferase (ALT/SGPT) 29 U/L (14-59) Alkaline Phosphatase 116 U/L (46-116) Creatine Kinase 80 U/L (26-192) Troponin I Quantitative < 0.017 ng/mL (0-0.055) AJ-Iea-C-Type Natriuretic Peptide 58 pg/mL (0-124) Total Protein 7.0 g/dL (6.4-8.2) Albumin 3.7 g/dL (3.4-5.0) Lipase 313 U/L (73-393) Thyroid Stimulating Hormone (TSH) 3.368 uIU/mL (0.358-3.740) Blood Gas pH 7.39 (7.35-7.45) Blood Gas PCO2 32 mmHg (35-45) Blood Gas PO2 59 mmHg (80-100) Blood Gas HCO3 19 mmol/L (22-26) Arterial Bld O2 Saturation (Calc) 90 % (92-99) FiO2 21 % Urine Collection Type Void Urine Color Yellow Urine Clarity Clear Urine pH 5.0 Urine Specific [place] <=1.005 Urine Protein Neg (NEG-TRACE) Urine Glucose (UA) Neg mg/dL (NEG) Urine Ketones (Stick) Neg mg/dL (NEG) Urine Blood Neg (NEG) Urine Nitrite Neg (NEG) Urine Bilirubin Neg (NEG) Urine Urobilinogen Dipstick 0.2 mg/dL (0.2 mg/dL) Urine Leukocyte Esterase Neg (NEG) Urine RBC Rare /HPF (0-2) Urine WBC Occ /HPF (0-4) Urine Squamous Epithelial Cells Occ /LPF Urine Bacteria Few /HPF (0-FEW) Urine Opiates Screen Neg (NEG) Urine Methadone Screen Neg (NEG) Urine Barbiturates Neg (NEG) Urine Phencyclidine Screen Neg (NEG) Urine Amphetamine/Methamphetamine Neg (NEG) Urine Benzodiazepines Screen Neg (NEG) Urine Cocaine Screen Neg (NEG) Urine Cannabinoids Screen Pos (NEG) Urine Ethyl Alcohol Neg (NEG) Test 12/31/17 20:55 01/01/18 07:35 01/01/18 11:27 Glucose (Fingerstick) 141 mg/dL (70-99) 127 mg/dL (70-99) 107 mg/dL (70-99) Brief Hospital Course Ms. Rivas is a 67 old female who presented with 3 weeks of cough and worsening wheeze and dyspnea. She had finished 3 courses of outpatient antibiotics without any improvement and presented to the emergency department with respiratory failure and COPD exacerbation. Through her hospitalization she' s been treated with Solu-Medrol 125 mg IV every 8 hours as well as DuoNeb's 4 times daily, albuterol as needed. Today she shows significant improvement in symptoms, she is ambulated the hallways and taken a shower without any supplemental O2 and she can talk in full sentences. She feels that she is back at her baseline she denies any new or worsening complaints she is requesting discharge home. Gen.: No apparent distress no conversational dyspnea HEENT: Normocephalic atraumatic, PERRLA EOMI mucous membranes moist Neck: Supple nontender Pulmonary: Mild diffuse wheeze with good air movement no respiratory distress Cardio: Normal S1 and S2 no murmur Extremities: No clubbing cyanosis or edema Neuro: Alert and oriented 3 no lateralizing neuro deficits Discharge Information Condition at Discharge: Improved Follow Up: Weeks (your doctor in 3-5 days) Disposition/Orders: D/C to Home Dischare Medications Current Medications Aspirin (Children'S Aspirin) 324 mg 1X ONCE PO Last administered on 12/30/17at 20:53; Start 12/30/17 at 21:00; Stop 12/30/17 at 21:01; Status DC Lactated Ringer's 1,000 ml @ 100 mls/hr Q10H IV Last administered on at 20:51; Start 12/30/17 at 20:24; Stop 12/31/17 at 06:23; Status DC Ceftriaxone Sodium 1 gm/ Sodium Chloride 50 ml @ 100 mls/hr 1X ONCE IV Last administered on 12/30/17at 20:52; Start 12/30/17 at 21:00; Stop 12/30/17 at 21:29 ; Status DC Azithromycin (Zithromax) 500 mg 1X ONCE PO Last administered on 12/30/17at 20: 53; Start 12/30/17 at 21:00; Stop 12/30/17 at 21:01; Status DC Methylprednisolone Sodium Succinate (SOLU-Medrol 125MG VIAL) 125 mg 1X ONCE IV Last administered on 12/30/17at 20:53; Start 12/30/17 at 21:00; Stop 12/30/17 at 21:01; Status DC Albuterol/ Ipratropium (Duoneb) 3 ml 1X ONCE NEB Last administered on at 20:40; Start 12/30/17 at 21:00; Stop 12/30/17 at 21:01; Status DC Sodium Chloride 50 ml @ As Directed STK-MED ONCE .ROUTE ; Start 12/30/17 at 20: 47; Stop 12/30/17 at 20:48; Status DC Ceftriaxone Sodium (Rocephin) 1 gm STK-MED ONCE IV ; Start 12/30/17 at 20:47; Stop 12/30/17 at 20:48; Status DC Iohexol (Omnipaque 300 Mg/ml) 75 ml 1X ONCE IV Last administered on 12/30/17at 21:47; Start 12/30/17 at 21:45; Stop 12/30/17 at 21:46; Status DC Info (Do NOT chart on this entry -- for MONITORING) 1 each PRN DAILY PRN MC SEE COMMENTS; Start 12/30/17 at 21:30; Stop 01/01/18 at 21:29 Ondansetron HCl (Zofran) 4 mg PRN Q4HRS PRN IV NAUSEA/VOMITING; Start 12/30/17 at 21:30; Stop 12/31/17 at 21:29; Status DC Albuterol/ Ipratropium (Duoneb) 3 ml RTQID NEB Last administered on 01/01/18at 10:46; Start 12/31/17 at 08:00; Stop 01/01/18 at 07:59; Status DC Methylprednisolone Sodium Succinate (SOLU-Medrol 125MG VIAL) 125 mg DAILY IV Last administered on 12/31/17at 09:22; Start 12/31/17 at 09:00; Stop 12/31/17 at 14:11; Status DC Azithromycin (Zithromax) 250 mg DAILY PO Last administered on 01/01/18 08:22; Start 12/31/17 at 09:00 Ceftriaxone Sodium 1 gm/ Sodium Chloride 50 ml @ 100 mls/hr QHS IV Last administered on 12/31/17at 20:07; Start 12/31/17 at 21:00 Famotidine (Pepcid) 20 mg BID PO Last administered on 01/01/18 08:20; Start at 22:00 Lactobacillus Rhamnosus (Culturelle) 1 cap BID PO Last administered on 08:22; Start 12/31/17 at 09:00 Methylprednisolone Sodium Succinate (SOLU-Medrol 125MG VIAL) 125 mg TID IV Last administered on 01/01/18 08:22; Start 12/31/17 at 21:00 Albuterol Sulfate (Ventolin) 2.5 mg PRN Q2HR PRN NEB SHORTNESS OF BREATH; Start 12/31/17 at 14:15 Cyclobenzaprine HCl (Flexeril) 10 mg BID PO Last administered on 01/01/18 08: 20; Start 12/31/17 at 21:00 Mycophenolate Mofetil (Cellcept) 1,000 mg BID PO Last administered on 08:24; Start 12/31/17 at 21:00 Potassium Chloride (Klor-Con) 40 meq BIDWMEALS PO Last administered on 08:21; Start 01/01/18 at 08:00 Tramadol HCl (Ultram) 50 mg PRN Q6HRS PRN PO PAIN; Start 12/31/17 at 19:00 Apixaban (Eliquis) 5 mg BID PO Last administered on 01/01/18 08:22; Start at 21:00 Citalopram Hydrobromide (CeleXA) 40 mg DAILY PO Last administered on 01/01/18 08:20; Start 01/01/18 at 09:00 Fluticasone Propionate (Flonase) 2 spray DAILY NS Last administered on 08:23; Start 01/01/18 at 09:00 Gabapentin (Neurontin) 300 mg TID PO Last administered on 9/16/18at 08:20; Start 12/31/17 at 21:00 Losartan Potassium (Cozaar) 100 mg DAILY PO Last administered on 01/01/18at 08: 22; Start 01/01/18 at 09:00 Pantoprazole Sodium (Protonix) 40 mg DAILYAC PO Last administered on 01/01/18at 08:23; Start 01/01/18 at 07:30 Pramipexole Dihydrochloride (miraPEX) 0.5 mg QHS PO Last administered on at 20:05; Start 12/31/17 at 21:00 Albuterol/ Ipratropium (Duoneb) 3 ml RTQID NEB ; Start 01/01/18 at 12:00 Active Scripts Active Reported Prednisone 2.5 Mg Tablet 5 Mg PO DAILY Losartan Potassium 100 Mg Tablet 1 Tab PO DAILY Eliquis (Apixaban) 5 Mg Tablet 5 Mg PO BID Gabapentin 300 Mg Capsule 1 Cap PO TID Pramipexole Dihydrochloride (Pramipexole Di-Hcl) 0.5 Mg Tablet 0.5 Mg PO HS Cyclobenzaprine Hcl 10 Mg Tablet 1 Tab PO BID Citalopram Hbr (Citalopram Hydrobromide) 40 Mg Tablet 40 Mg PO DAILY Tramadol Hcl (Tramadol HCl) 50 Mg Tablet 50 Mg PO PRN Q6HRS PRN Protonix (Pantoprazole Sodium) 40 Mg Tablet.dr 1 Tab PO DAILY Klor-Con M20 (Potassium Chloride) 20 Meq Tab.er.prt 2 Tab PO BID Cellcept (Mycophenolate Mofetil) 500 Mg Tablet 2 Tab PO BID Breo Ellipta 100-25 Mcg Inh (Fluticasone/Vilanterol) 1 Each Aer.pow.ba 1 Puff IH DAILY Patient Instructions Patient Instuctions Use home Duoneb four times daily. Albuterol nebs as needed every two hours. Albuterol MDI as rescue inhaler. Prednisone 20mg twice daily #10. Follow up with your doctor in 3-5 days for recheck and to discuss further steroids or taper. Recommend discontinue smoking. MISSY TAYLOR DO Jan 01, 2018 12:37
== END 2018-01-01 18:35 | disposition home or self-care (01) | DRG 189 ==
LOC: ER 20:05 → 1 SOUTH 21:00
PROVIDERS: ADMIT Neuromusculoskeletal Medicine & OMM; ATTEND Neuromusculoskeletal Medicine & OMM
DX: J96.90 Respiratory failure, unspecified, unspecified whether with hypoxia or hypercapnia (principal); J44.1 Chronic obstructive pulmonary disease with (acute) exacerbation; M31.30 Wegener's granulomatosis without renal involvement; F12.10 Cannabis abuse, uncomplicated; F17.210 Nicotine dependence, cigarettes, uncomplicated; G25.81 Restless legs syndrome; I10 Essential (primary) hypertension; K21.9 Gastro-esophageal reflux disease without esophagitis; M06.9 Rheumatoid arthritis, unspecified; I49.3 Ventricular premature depolarization; D72.829 Elevated white blood cell count, unspecified; M79.7 Fibromyalgia; Z90.49 Acquired absence of other specified parts of digestive tract; Z90.710 Acquired absence of both cervix and uterus; Z99.81 Dependence on supplemental oxygen; Z88.8 Allergy status to other drugs, medicaments and biological substances; Z90.722 Acquired absence of ovaries, bilateral; Z79.899 Other long term (current) drug therapy
CPT/HCPCS: 36415; 36600; 71046; 71275; 80048; 80076; 80307; 81001; 82550; 82803; 82947; 83605; 83690; 83735; 83880; 84443; 84484; 85025; 85379; 85610; 85651; 85730; 87040; 93005; 94640; 96365; 96375; 99406; J0456; J0696; J2930; J7120; J7517; J7620; Q9967; 99285-25; G0479

== ENCOUNTER → 2019-06-09 | Outpatient (CLI) | payer MEDICARE ==
[~2019-06-09] MED LIST changes: +APIX5TAB3 PO; +GABA300C8 PO; -GABA600T2 PO; +GABA600T7 PO; +HYDR-3165 PO; -HYDR-971 PO; +LOSA100T14 PO; -LOSA50TA7 PO; +LOSA50TA86 PO; +PRED2.5T PO
--- NOTE | 2019-06-09 11:28 | RAD ---
EXAM: Chest, 2 views. HISTORY: Cough. Bronchitis. COMPARISON: 12/30/2017 FINDINGS: 2 views of chest are obtained. There is emphysema with superimposed chronic diffuse interstitial changes. There is no consolidation, pleural effusion or pneumothorax. The heart is normal in size. IMPRESSION: Emphysema with superimposed chronic diffuse interstitial changes. Electronically signed by: Senait Jacobs MD (06/09/2019 11:25 AM) [id number]
== END | disposition home or self-care (01) ==
LOC: DXRAD 10:20
PROVIDERS: ATTEND Family Medicine
DX: J43.9 Emphysema, unspecified (principal); J98.4 Other disorders of lung
CPT/HCPCS: 71046

== ENCOUNTER → 2019-12-12 | Outpatient (CLI) | payer MEDICARE ==
--- NOTE | 2019-12-12 12:45 | RAD ---
EXAM: CHEST PA LATERAL, HAND RIGHT 3V INDICATION: Reason: COUGH, COPD / Spl. Instructions: / History: . TECHNIQUE: Single view COMPARISON: None FINDINGS: The heart size is normal. The great vessels appear unremarkable. There is no hilar or mediastinal mass. The lungs are hyperlucent in a pattern suggesting underlying COPD but show no focal infiltrates.. There is no pleural effusion or pneumothorax. There are no significant osseous abnormalities. IMPRESSION: No active cardiopulmonary disease. PROCEDURE: CHEST PA LATERAL, HAND RIGHT 3V CLINICAL INDICATION / HISTORY: HAND NUMBNESS, ALL FINGERTIPS PAINFUL, NO KNOWN INJURY. TECHNIQUE: PA, lateral and oblique views of the right hand. COMPARISON: None FINDINGS: No fracture or dislocation is identified. The bone density is normal. The joint spaces are maintained, and there are no erosions to suggest an inflammatory arthropathy. The soft tissues are unremarkable. IMPRESSION: Unremarkable 3 views of the right hand. Electronically signed by: Edilma Buckner MD (12/12/2019 12:42 PM) [id number]
== END | disposition home or self-care (01) ==
LOC: RAD 11:13
PROVIDERS: ATTEND Physician Assistant Medical
DX: J43.0 Unilateral pulmonary emphysema [MacLeod's syndrome] (principal); R05 Cough; R20.0 Anesthesia of skin
CPT/HCPCS: 71046; 73130

== ENCOUNTER → 2020-07-07 | Outpatient (CLI) | payer MEDICARE ==
--- NOTE | 2020-07-07 08:35 | RAD ---
XR ABDOMEN 2V History: Left lower quadrant pain. History of colon resection 7 years ago. Comparison: None. Technique: Upright and supine radiographs of the abdomen. Findings: Bowel gas pattern: Normal. Free air: None. Abnormal calcifications: None. Bones: Degenerative changes of the lower lumbar spine. Other: Chain sutures in the pelvis. Abdominal mesh retention coils throughout the central abdomen. Impression: 1. No acute abdominal findings. Electronically signed by: James Enamorado MD (07/07/2020 8:32 AM) [facility]
== END ==
LOC: PMG 08:01
PROVIDERS: ATTEND Physician Assistant
DX: R10.32 Left lower quadrant pain (principal); M47.816 Spondylosis without myelopathy or radiculopathy, lumbar region; Z85.038 Personal history of other malignant neoplasm of large intestine
CPT/HCPCS: 74019

== ENCOUNTER 2020-08-15 07:54 | Emergency (ER) | payer MEDICARE ==
[~2020-08-15] VITALS: Ht 160 cm; Wt 63.2 kg
--- NOTE | 2020-08-15 08:29 | PHYS DOC ---
Past History Past Medical History: COPD, GERD, Hypertension, Other Additional Past Medical Histor: alpha-1 antitrypsan; Piedad's granulomatous Past Surgical History: Appendectomy, Hysterectomy Smoking: Cigarettes Alcohol Use: None Drug Use: None General Adult EDM: Chief Complaint: ABDOMINAL PAIN HPI: HPI: Patient is a 70-year-old female coming in for left-sided abdominal pain and nausea and vomiting. Patient states she has been having the abdominal pain for the past 3 to 4 weeks and was seen by her primary care provider and had an x-ray done which she was told was normal. Patient states that over the past few days she has not been to keep anything down and has very little p.o. intake. Emesis is nonbloody or bilious, denies any melena or or blood in stools. Says she has felt hot but is not had any fevers. No known sick contacts, recent antibiotic use, recent travel or raw or undercooked food. Patient states she was fully vaccinated for COVID-19 a little over a month ago. Review of Systems: Review of Systems: All other systems within normal limits except for as noted in the HPI Allergies: Allergies: Allergies Coded Allergies Type Severity Reaction Last Updated Verified doxycycline Allergy Intermediate 02/23/17 Yes methotrexate Allergy Intermediate 02/23/17 Yes Physical Exam: PE: Constitutional: Well developed, well nourished, no acute distress, non-toxic appearance. [] HENT: Normocephalic, atraumatic, bilateral external ears normal, nose normal. [] Eyes: PERRLA, conjunctiva normal, no discharge. [] Neck: No rigidity, supple, no stridor. [] Cardiovascular: Regular rate and rhythm, brisk cap refill [] Lungs & Thorax: Non labored symmetric respirations, no tachypnea or respiratory distress [] Abdomen: Soft, nondistended, left lower quadrant abdominal pain and guarding, no rebound tenderness.. Skin: Warm, dry, no erythema, no rash. [] Back: Unremarkable Extremities: No deformities, range of motion grossly intact, no lower extremity edema [] Neurologic: Alert and oriented X 3, no focal deficits noted. [] Psychologic: Affect normal, judgement normal, mood normal. [] Current Patient Data: Vital Signs: Vital Signs Date Time Temp Pulse Resp B/P (MAP) Pulse Ox O2 Delivery O2 Flow Rate FiO2 4/30/21 08:06 98.2 66 20 180/74 (109) 97 Room Air EKG: EKG: [] Sinus rhythm, heart rate 63 bpm, normal axis, no ST elevation or depression. No ectopy. Normal intervals Radiology/Procedures: Radiology/Procedures: ADDENDUM ADDENDUM #1 Addendum: There is a typographical error within the findings section of the report. The fourth sentence in the last paragraph should state "There is AN abdominal aortic aneurysm measuring 3.2 cm in caliber". Electronically signed by: Senait Jacobs MD (08/15/2020 10:56 AM) [id number] ORIGINAL REPORT EXAM: Abdomen and pelvis CT with intravenous contrast. HISTORY: Pain. TECHNIQUE: Computed tomographic images of the abdomen and pelvis were obtained following the administration of intravenous contrast. Multiplanar reformatting was performed. *One or more of the following individualized dose reduction techniques were utilized for this examination: 1. Automated exposure control. 2. Adjustment of the mA and/or kV according to patient size. 3. Use of iterative reconstruction technique. COMPARISON: None. FINDINGS: Evaluation of the lower thorax demonstrates mild pulmonary emphysema. There is suspected lingular atelectasis or scarring, partially included on the [id number]. There is no infiltrate or suspicious pulmonary nodule. No hepatic lesion is seen. The gallbladder, pancreas, spleen and stomach are unremarkable. There is a 2.1 cm right adrenal nodule, the attenuation which favors an adenom a. There is also a suspected 1.5 cm adenoma involving the medial limb of the left adrenal gland superimposed on nodular adrenal gland thickening. There is a tiny right renal cortical cyst. Follow-up is not routinely performed for simple cysts. There is a 2 mm calcification within the left renal hilum which is likely vascular. There are prominent renal pelves, without hydronephrosis. The bladder is unremarkable. The uterus is absent. The ovaries are also likely absent. There is no appendicitis. There is no bowel obstruction. There is distal colonic diverticulosis. There is focal fatty stranding surrounding the mid to distal sigmoid colon in a region of diverticula, likely due to acute diverticulitis. This is proximal to a rectosigmoid anastomosis. There is no drainable fluid collection or free air. There is evidence of ventral abdominal wall hernia repair. There is slight diastasis along the right lateral aspect of the ventral abdominal wall mesh. No significant hernia is seen. There is no abdominal aortic aneurysm measuring 3.2 cm in caliber. There is heavily calcified atherosclerotic plaque within the aorta and main aortic branch vessels. There is degenerative change throughout the spine. There are laminotomy changes at L3-L4. There is no acute osseous fin ding. IMPRESSION: 1. Acute diverticulitis involving the mid to distal sigmoid colon proximal to a rectosigmoid anastomosis. No drainable abscess or free air is seen. The superimposed on distal colonic diverticulosis. 2. Findings chest with prior ventral abdominal wall hernia repair. 3. Bilateral adrenal nodules, the appearance of which favors adenomas. This is superimposed on adrenal gland thickening. 4. Pulmonary emphysema.[] Heart Score: C/O Chest Pain: No Risk Factors: Risk Factors: DM, Current or recent (<one month) smoker, HTN, HLP, family history of CAD, obesity. Risk Scores: Score 0 - 3: 2.5% MACE over next 6 weeks - Discharge Home Score 4 - 6: 20.3% MACE over next 6 weeks - Admit for Clinical Observation Score 7 - 10: 72.7% MACE over next 6 weeks - Early Invasive Strategies Course & Med Decision Making: Course & Med Decision Making Pertinent Labs and Imaging studies reviewed. (See chart for details) [] Jeronimo Disclaimer: Jeronimo Disclaimer: This electronic medical record was generated, in whole or in part, using a voice recognition dictation system. Departure Departure: Impression: Primary Impression: Diverticulitis large intestine w/o perforation or abscess w/o bleeding Disposition: HOME / SELF CARE / HOMELESS Condition: STABLE Referrals: JESSICA NAIK MD (PCP) Patient Instructions: Diverticulitis Scripts Hydrocodone/Acetaminophen (Hydrocodone-Acetamin 5-325 mg) 1 Each Tablet 1 EACH PO PRN Q6-8HRS PRN for PAIN for 5 Days, #15 TAB Prov: GARRET DAWN MD 08/15/20 Amoxicillin/Potassium Clav (AUGMENTIN 875-125 TABLET) 1 Each Tablet 1 TAB PO BID for antibiotic for 14 Days, #28 TAB 0 Refills Prov: GARRET DAWN MD 08/15/20 GARRET DAWN MD Aug 15, 2020 08:29
[2020-08-15] MEDS ORDERED: MORPHINE SULFATE 4 MG/ML DISP.SYRIN. IV ONE (08:30)
[2020-08-15] MEDS ORDERED: ONDANSETRON PF 4 MG/2 ML VIAL. IVP ONE (08:30)
[2020-08-15] MEDS ORDERED: IV NORMAL SALINE 1,000ML 1,000 ML IV ONE (08:30)
[2020-08-15] MEDS ORDERED: IOHEXOL 300 MG/ML 75 ML VIAL. IV ONE (08:30)
[2020-08-15] MEDS ORDERED: CONTRAST GIVEN. MC PRN (08:45)
[2020-08-15 08:51] LABS: BASO # 0.1 x10^3/uL (0.0-0.2); BASO % 1 % (0-3); EOS # 0.1 x10^3/uL (0.0-0.7); EOS % 1 % (0-3); HEMATOCRIT 43.1 % (36.0-47.0); HEMOGLOBIN 14.3 g/dL (12.0-15.5); LYMPH # 1.7 x10^3/uL (1.0-4.8); LYMPH % 25 % (24-48); MEAN CORPUSCULAR HEMOGLOBIN 30 pg (25-35); MEAN CORPUSCULAR HGB CONC 33 g/dL (31-37); MEAN CORPUSCULAR VOLUME 89 fL (79-100); MONO # 0.5 x10^3/uL (0.0-1.1); MONO % 7 % (0-9); NEUT # 4.4 x10^3uL (1.8-7.7); NEUT % 65 % (31-73); PLATELET COUNT 234 x10^3/uL (140-400); RED BLOOD COUNT 4.83 x10^6/uL (3.50-5.40); RED CELL DISTRIBUTION WIDTH 14.3 % (11.5-14.5); WHITE BLOOD COUNT 6.7 x10^3/uL (4.0-11.0)
[2020-08-15 09:03] LABS: LIPASE 211 U/L (73-393)
--- NOTE | 2020-08-15 09:16 | RAD ---
EXAM: Abdomen and pelvis CT with intravenous contrast. HISTORY: Pain. TECHNIQUE: Computed tomographic images of the abdomen and pelvis were obtained following the administ ration of intravenous contrast. Multiplanar reformatting was performed. *One or more of the following individualized dose reduction techniques were utilized for this examina tion: 1. Automated exposure control. 2. Adjustment of the mA and/or kV according to patient size. 3. Use of iterative reconstruction technique. COMPARISON: None. FINDINGS: Evaluation of the lower thorax demonstrates mild pulmonary emphysema. There is suspected li ngular atelectasis or scarring, partially included on the [id number]. There is no infiltrate or cardona spicious pulmonary nodule. No hepatic lesion is seen. The gallbladder, pancreas, spleen and stomach a re unremarkable. There is a 2.1 cm right adrenal nodule, the attenuation which favors an adenoma. The re is also a suspected 1.5 cm adenoma involving the medial limb of the left adrenal gland superimpose d on nodular adrenal gland thickening. There is a tiny right renal cortical cyst. Follow-up is not routinely performed for simple cysts. The re is a 2 mm calcification within the left renal hilum which is likely vascular. There are prominent renal pelves, without hydronephrosis. The bladder is unremarkable. The uterus is absent. The ovaries are also likely absent. There is no appendicitis. There is no bowel obstruction. There is distal colonic diverticulosis. Ther e is focal fatty stranding surrounding the mid to distal sigmoid colon in a region of diverticula, li jazmyn due to acute diverticulitis. This is proximal to a rectosigmoid anastomosis. There is no drainab le fluid collection or free air. There is evidence of ventral abdominal wall hernia repair. There is slight diastasis along the right lateral aspect of the ventral abdominal wall mesh. No significant hernia is seen. There is no abdomin al aortic aneurysm measuring 3.2 cm in caliber. There is heavily calcified atherosclerotic plaque wit hin the aorta and main aortic branch vessels. There is degenerative change throughout the spine. Ther e are laminotomy changes at L3-L4. There is no acute osseous finding. IMPRESSION: 1. Acute diverticulitis involving the mid to distal sigmoid colon proximal to a rectosigmoid anastomo sis. No drainable abscess or free air is seen. The superimposed on distal colonic diverticulosis. 2. Findings chest with prior ventral abdominal wall hernia repair. 3. Bilateral adrenal nodules, the appearance of which favors adenomas. This is superimposed on adrena l gland thickening. 4. Pulmonary emphysema. Electronically signed by: Senait Jacobs MD (08/15/2020 9:14 AM) [id number]
--- NOTE | 2020-08-15 09:44 | EKG ---
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
[2020-08-15 11:16] LABS: BILIRUBIN,URINE NEG (NEG); CLARITY,URINE CLEAR; COLOR,URINE YELLOW; GLUCOSE,URINE NEG (NEG); NITRITE,URINE NEG (NEG); UROBILINOGEN,URINE 0.2 mg/dL (0.2 mg/dL)
[2020-08-15 11:18] LABS: BACTERIA,URINE FEW /HPF (0-FEW); RBC,URINE 0 /HPF (0-2); WBC,URINE 0 /HPF (0-4)
[2020-08-15 11:19] LABS: SQUAMOUS EPITHELIAL CELL,UR FEW /LPF
[2020-08-15 12:03] VITALS: BP 128/51
[2020-08-15] MEDS ORDERED: AMOX1TAB61 PO (12:13)
[2020-08-15] MEDS ORDERED: HYDR-2759 PO (12:13)
[2020-08-15] MEDS ORDERED: HYDROcodone/APAP 5/325MG 1 TAB TABLET PO ONE (12:15)
[2020-08-15] MEDS ORDERED: AMOXICILLIN/K CLAV 875/125MG TABLET. PO ONE (12:15)
== END 2020-08-15 12:33 | disposition home or self-care (01) ==
LOC: ER 07:54
DX: K57.32 Diverticulitis of large intestine without perforation or abscess without bleeding (principal); J44.9 Chronic obstructive pulmonary disease, unspecified; K21.9 Gastro-esophageal reflux disease without esophagitis; I10 Essential (primary) hypertension; F17.210 Nicotine dependence, cigarettes, uncomplicated; Z90.89 Acquired absence of other organs; Z90.710 Acquired absence of both cervix and uterus; Z88.1 Allergy status to other antibiotic agents; Z88.8 Allergy status to other drugs, medicaments and biological substances
CPT/HCPCS: 36415; 74177; 81001; 82550; 83605; 83690; 84484; 85025; 93005; 96361; 96374; 96375; 99285; J2270; J2405; J7030; Q9967

== ENCOUNTER 2020-11-03 16:15 | Inpatient (IN) | payer MEDICARE ==
[~2020-11-03] VITALS: Ht 160 cm; Wt 62.2 kg
[~2020-11-03 16:15] MED LIST changes: +AMOX1TAB61 PO; +HYDR-2759 PO
--- NOTE | 2020-11-03 16:55 | EKG ---
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
--- NOTE | 2020-11-03 17:00 | RAD ---
AP chest. HISTORY: Short of breath AP view was taken of the chest. There is arthritis and rotator cuff degeneration in the shoulders. Lucy ngs are free of infiltrates. Heart is normal in size. There is no effusion. There is been little wynn ge compared to the old study from November 2019. IMPRESSION: 1. No acute infiltrates. Electronically signed by: Kody Sow MD (11/03/2020 4:58 PM) [facility]
--- NOTE | 2020-11-03 17:10 | PHYS DOC ---
Past History Past Medical History: COPD, GERD, Hypertension, Other Additional Past Medical Histor: alpha-1 antitrypsan; Piedad's granulomatous Past Surgical History: Appendectomy, Hysterectomy Smoking: Cigarettes Alcohol Use: None Drug Use: None General Adult EDM: Chief Complaint: SHORTNESS OF BREATH HPI: HPI: 70-year-old female presents with shortness of breath. The patient has COPD at baseline. She is usually on 2 and half liters of oxygen at home all the time. Over the last few days she has been feeling more short of breath. She is still taking her breathing treatments and other medications as prescribed. Her is positive for COVID-19. The patient did get vaccinated. She denies chest pain or diaphoresis. When she walks around her oxygen drops into the 80s. This was very concerning to the patient. Review of Systems: Review of Systems: Constitutional: Body aches, fatigue, fever. Eyes: Denies change in visual acuity HENT: Denies nasal congestion or sore throat Respiratory: Intermittent cough with shortness of breath Cardiovascular: Denies chest pain or edema GI: Denies abdominal pain, nausea, vomiting, bloody stools or diarrhea : Denies dysuria Musculoskeletal: Denies back pain or joint pain Integument: Denies rash Neurologic: Denies headache, focal weakness or sensory changes Endocrine: Denies polyuria or polydipsia Lymphatic: Denies swollen glands Psychiatric: anxiety Allergies: Allergies: Allergies Coded Allergies Type Severity Reaction Last Updated Verified doxycycline Allergy Intermediate 02/23/17 Yes methotrexate Allergy Intermediate 02/23/17 Yes Physical Exam: PE: Constitutional: Well developed, well nourished, no acute distress, non-toxic appearance. [] HENT: Normocephalic, atraumatic, bilateral external ears normal, oropharynx moist, no oral exudates, nose normal. [] Eyes: PERRLA, EOMI, conjunctiva normal, no discharge. [] Neck: Normal range of motion, no tenderness, supple, no stridor. [] Cardiovascular: Heart rate 73, regular rhythm, no murmur [] Lungs & Thorax: Bilateral breath sounds diminished with end expiratory wheezing throughout [] Abdomen: Bowel sounds normal, soft, no tenderness, no masses, no pulsatile masses. [] Skin: Warm, dry, no erythema, no rash. [] Back: No tenderness, no CVA tenderness. [] Extremities: No tenderness, no cyanosis, no clubbing, ROM intact, no edema. [] Neurologic: Alert and oriented X 3, normal motor function, normal sensory function, no focal deficits noted. [] Psychologic: Affect normal, judgement normal, mood anxious. [] EKG: EKG: Sinus rhythm, rate 73, normal axis, no ST elevation or depression. [] Radiology/Procedures: Radiology/Procedures: [] Impressions: AP chest. HISTORY: Short of breath AP view was taken of the chest. There is arthritis and rotator cuff degeneration in the shoulders. Lungs are free of infiltrates. Heart is normal in size. There is no effusion. There is been little change compared to the old study from November 2019. IMPRESSION: 1. No acute infiltrates. Electronically signed by: Kody Sow MD (11/03/2020 4:58 PM) [facility] DICTATED AND SIGNED BY: KODY SOW MD DATE: 11/03/201656 CC: MELODY ESPINO DO; JESSICA NAIK MD ~MTH0 0 Heart Score: C/O Chest Pain: No Risk Factors: Risk Factors: DM, Current or recent (<one month) smoker, HTN, HLP, family history of CAD, obesity. Risk Scores: Score 0 - 3: 2.5% MACE over next 6 weeks - Discharge Home Score 4 - 6: 20.3% MACE over next 6 weeks - Admit for Clinical Observation Score 7 - 10: 72.7% MACE over next 6 weeks - Early Invasive Strategies Course & Med Decision Making: Course & Med Decision Making Pertinent Labs and Imaging studies reviewed. (See chart for details) No give the patient 10 mg of Decadron IV as well as 2 DuoNeb treatments. The patient is having a COPD exacerbation. The question is whether or not she is p ositive for Covid. We have sent a Covid swab. We will admit her to the hospital for COPD exacerbation and PUI. I spoke with Dr. Will and he has accepted the patient for admission. [] Jeronimo Disclaimer: Jeronimo Disclaimer: This electronic medical record was generated, in whole or in part, using a voice recognition dictation system. Departure Departure: Impression: Primary Impression: COPD exacerbation Additional Impression: Suspected 2019 novel coronavirus infection Disposition: ADMITTED INPATIENT Admitting Physician: Darrell Will Condition: STABLE Referrals: JESSICA NAIK MD (PCP) MELODY ESPINO DO Nov 03, 2020 17:10
[2020-11-03] MEDS ORDERED: IPRATRPIUM/ALBUTEROL 0.5/2.5MG 3 ML NEBU. NEB ONE (17:15)
[2020-11-03] MEDS ORDERED: DEXAMETHASONE SOD PHOS 10 MG/ML VIAL. IVP ONE (17:15)
[2020-11-03] MEDS ORDERED: ONDANSETRON PF 4 MG/2 ML VIAL. IVP PRN (18:00)
[2020-11-03 18:20] LABS: BASO % 1 % (0-3); EOS % 1 % (0-3); HEMATOCRIT 40.7 % (36.0-47.0); HEMOGLOBIN 13.3 g/dL (12.0-15.5); LYMPH # 1.4 x10^3/uL (1.0-4.8); LYMPH % 36 % (24-48); MEAN CORPUSCULAR HEMOGLOBIN 29 pg (25-35); MEAN CORPUSCULAR HGB CONC 33 g/dL (31-37); MEAN CORPUSCULAR VOLUME 90 fL (79-100); MONO # 0.5 x10^3/uL (0.0-1.1); MONO % 12 % (0-9); NEUT # 2.1 x10^3uL (1.8-7.7); NEUT % 52 % (31-73); PLATELET COUNT 152 x10^3/uL (140-400); RED BLOOD COUNT 4.53 x10^6/uL (3.50-5.40); RED CELL DISTRIBUTION WIDTH 14.2 % (11.5-14.5)
[2020-11-03 18:30] LABS: CALCIUM 8.4 mg/dL (8.5-10.1); CREATININE 0.9 mg/dL (0.6-1.0); GFR 62.1; POTASSIUM 4.1 mmol/L (3.5-5.1)
[2020-11-03] MEDS ORDERED: ACETAMINOPHEN 500 MG TABLET PO ONE (18:30)
[2020-11-03 18:36] LABS: ALBUMIN 3.6 g/dL (3.4-5.0); ALBUMIN/GLOBULIN RATIO 1.4 (1.0-1.7); TOTAL BILIRUBIN 0.4 mg/dL (0.2-1.0); TOTAL PROTEIN 6.2 g/dL (6.4-8.2)
[2020-11-03 20:06] VITALS: BP 97/46
[2020-11-03] MEDS: IPRATRPIUM/ALBUTEROL 0.5/2.5MG 3 ML NEBU. NEB SCH (22:14)
[2020-11-03 22:29] VITALS: BP 96/45
--- NOTE | 2020-11-03 23:20 | NUR ---
NURSING ADMIT NOTE: Received pt from ED via cart in stable condition; A&Ox3, VSS, afebrile; states onset of symptoms 3 days ago, c/o SOA, cough, sore throat, body aches, and intermittent fever with temp at home up to 101; lungs diminished throughout all weller, Sats 98% on 2L via nasal canula; tested positive for COVID 7 days ago, pt states she had negative test 5 days ago; PUI precaustions in place as per protocol; room orientation given, plan of care discussed, verbalized understanding; siderails up x2, call maxwell in reach.
[2020-11-04] MEDS: IPRATRPIUM/ALBUTEROL 0.5/2.5MG 3 ML NEBU. NEB SCH ×4 (05:24→16:00)
[2020-11-04 05:40] VITALS: BP 114/49
[2020-11-04 07:40] LABS: BACTERIA,URINE 0 /HPF (0-FEW); BILIRUBIN,URINE NEG (NEG); CLARITY,URINE HAZY; COLOR,URINE YELLOW; GLUCOSE,URINE NEG (NEG); NITRITE,URINE NEG (NEG); RBC,URINE OCC /HPF (0-2); SQUAMOUS EPITHELIAL CELL,UR MOD /LPF; UROBILINOGEN,URINE 0.2 mg/dL (0.2 mg/dL)
[2020-11-04 07:45] LABS: HYALINE CASTS, URINE OCC /HPF
[2020-11-04] MEDS: LOSARTAN 50 MG TABLET. PO SCH (09:30)
[2020-11-04] MEDS: CYCLOBENZAPRINE 10 MG TABLET. PO SCH ×2 (09:39→21:24)
[2020-11-04] MEDS: traMADol 50 MG TABLET PO PRN (09:39)
[2020-11-04] MEDS: APIXABAN 5 MG TABLET. PO SCH ×2 (09:40→21:25)
[2020-11-04] MEDS: GABAPENTIN 300 MG CAPSULE. PO SCH ×3 (09:40→21:25)
[2020-11-04] MEDS: POTASSIUM CHLORIDE 20 MEQ TABLET.ER. PO SCH ×2 (09:40→21:24)
[2020-11-04] MEDS: DEXAMETHASONE SOD PHOS 4 MG/ML VIAL. IVP SCH (09:40)
[2020-11-04] MEDS: MYCOPHENOLATE MOFETIL 250 MG CAPSULE PO SCH ×2 (09:48→21:25)
[2020-11-04] MEDS: PANTOPRAZOLE 40 MG TABLET. PO SCH (09:52)
[2020-11-04 12:21] VITALS: BP 111/64
[2020-11-04] MEDS ORDERED: PRAMIPEXOLE 0.5 MG TABLET. PO SCH ×2 (14:30→21:00)
[2020-11-04 16:25] VITALS: BP 85/42
[2020-11-04] MEDS ORDERED: IV NORMAL SALINE 500ML 500 ML IV ONE (16:45)
--- NOTE | 2020-11-04 17:14 | NUR ---
NURSING NOTE PT BLOOD PRESSURE 85/42. THIS NURSE WENT TO ASSESS PT, RECHECKED AT 100/52. ORDER OBTAINED FOR 500CC BOLUS NORMAL SALINE THEN ADDITIONAL NS AT 75MLS/HR. BLOOD PRESSURE IS NOW 116/54. BARTOLOME MADRIGAL
[2020-11-04 17:16] VITALS: BP 116/54
[2020-11-04] MEDS: IV NORMAL SALINE 1,000ML 1,000 ML IV SCH (17:45)
--- NOTE | 2020-11-04 20:05 | HP ---
ADMIT DATE: 11/03/2020 HISTORY OF PRESENT ILLNESS: The patient is a 70-year-old female patient who presented to the Emergency Room with shortness of breath that has been going on for 3 days. She is normally on 2-1/2 liters of oxygen at home at all times. Over the last few days, she has been feeling more short of breath. She is still taking her breathing treatment and other medication as prescribed. Her is positive for COVID-19. The patient did get vaccinated. She denied any chest pain or diaphoresis. When she walks around, her oxygen saturation drops to the 80s. This was very concerning to the patient and therefore, she came to the Emergency Room. In the Emergency Room, she was extensively investigated. Her EKG showed that she was in sinus rhythm. Chest x-ray showed the lungs are free of infiltrate. Heart size is normal. There is no effusion, no pneumothorax. Her lab work was mostly unremarkable. Urinalysis was also unremarkable and her coronavirus by PCR was positive. She was admitted with COPD exacerbation, was started on IV antibiotic as well as steroids and bronchodilator. PAST MEDICAL HISTORY: Significant for COPD, Piedad granulomatosis, restless leg syndrome and hypertension. PAST SURGICAL HISTORY: Significant for right wrist surgery, back surgery. She had a colonoscopy, colon resection, hernia repair and shoulder surgery. ALLERGIES: SHE IS ALLERGIC TO IMURAN, DOXYCYCLINE, METHOTREXATE. MEDICATIONS: She is currently on the following medications: She is on cyclobenzaprine 10 mg twice a day, apixaban 5 mg twice a day, losartan potassium 50 mg once a day, tramadol 50 mg every 6 hours, gabapentin 300 mg 3 times a day, citalopram hydrobromide 40 mg daily. She is on Mirapex 0.5 mg at bedtime. She is on potassium chloride 20 mEq, just takes 2 tablets twice a day. She is on Breo Ellipta 1 puff once a day; Protonix 40 mg once a day; prednisone 5 mg daily; mycophenolate; CellCept 500 mg, takes 2 tablets twice a day. FAMILY HISTORY: Noncontributory. SOCIAL HISTORY: She is , has 2 daughters. She continued to smoke, a pack would last her 1-1/2 to 2 days. She does not drink alcohol or use marijuana. 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 PHYSICAL EXAMINATION: GENERAL: On arrival to the Emergency Room, she looked well and was clearly in no apparent respiratory distress, somewhat pale, cachectic, but no jaundice, cyanosis or thyromegaly. No jugular venous distention. No limb edema. VITAL SIGNS: Her heart rate was 56, blood pressure was 126/55, temperature was 98.8, respiratory rate was 24 and oxygen saturation was 98% on 3 liters of oxygen. HEAD, EYES, EARS, NOSE AND THROAT: Normocephalic, atraumatic. NECK: Supple. HEART: Showed normal first and second heart sounds, no gallop or murmur. CHEST: Shows central trachea, equally reduced expansion, reduced air entry, vesicular breath sounds, very few scattered rhonchi. No crepitation. ABDOMEN: Scaphoid, soft, nontender. NEUROLOGIC: She was grossly intact. LABORATORY DATA: Showed a white cell count of 4000, hemoglobin 13, hematocrit 40, MCV 90 and platelet count of 152,000. Her chemistry showed a serum sodium 142, potassium 4.1, chloride 108, bicarbonate 23, anion gap of 11, BUN 8, creatinine 0.9. Estimated GFR was 62 mL per minute. Her glucose 102, calcium was 8.4. total bilirubin, AST, ALT, alkaline phosphatase were normal. Total protein 6.2, albumin 3.6. Her urinalysis essentially unremarkable and her PCR was sent, the results of which is still pending at the time of this dictation. ASSESSMENT: Chronic obstructive pulmonary disease exacerbation, suspected novel coronavirus infection, although the patient herself has already been vaccinated. Other medical problems include Piedad's granulomatosis, restless leg syndrome and hypertension. ELIJAH/CARLOS/NICHOLE DR: Noble TID: [id number]
[2020-11-04] MEDS: PRAMIPEXOLE 0.25 MG TABLET. PO SCH (21:25)
[2020-11-04 22:25] VITALS: BP 128/69
[2020-11-05 05:56] LABS: HEMATOCRIT 37.9 % (36.0-47.0); HEMOGLOBIN 12.4 g/dL (12.0-15.5); RED BLOOD COUNT 4.19 x10^6/uL (3.50-5.40); RED CELL DISTRIBUTION WIDTH 14.6 % (11.5-14.5); WHITE BLOOD COUNT 6.5 x10^3/uL (4.0-11.0)
[2020-11-05 06:11] LABS: ALBUMIN 3.1 g/dL (3.4-5.0); ALBUMIN/GLOBULIN RATIO 1.1 (1.0-1.7); CALCIUM 8.3 mg/dL (8.5-10.1); CREATININE 0.9 mg/dL (0.6-1.0); GFR 62.1; POTASSIUM 5.2 mmol/L (3.5-5.1); TOTAL BILIRUBIN 0.2 mg/dL (0.2-1.0); TOTAL PROTEIN 5.8 g/dL (6.4-8.2)
[2020-11-05 06:33] VITALS: BP 131/61
[2020-11-05] MEDS: IV NORMAL SALINE 1,000ML 1,000 ML IV SCH ×2 (06:38→22:13)
[2020-11-05] MEDS: APIXABAN 5 MG TABLET. PO SCH ×2 (07:56→22:11)
[2020-11-05] MEDS: GABAPENTIN 300 MG CAPSULE. PO SCH ×3 (07:56→22:11)
[2020-11-05] MEDS: PANTOPRAZOLE 40 MG TABLET. PO SCH (07:56)
[2020-11-05] MEDS: CITALOPRAM 20 MG TABLET. PO SCH (07:56)
[2020-11-05] MEDS: CYCLOBENZAPRINE 10 MG TABLET. PO SCH ×2 (07:56→22:11)
[2020-11-05] MEDS: LOSARTAN 50 MG TABLET. PO SCH (07:56)
[2020-11-05] MEDS: POTASSIUM CHLORIDE 20 MEQ TABLET.ER. PO SCH ×2 (07:56→22:16)
[2020-11-05] MEDS: MYCOPHENOLATE MOFETIL 250 MG CAPSULE PO SCH ×2 (07:57→22:11)
[2020-11-05] MEDS: DEXAMETHASONE SOD PHOS 4 MG/ML VIAL. IVP SCH (07:57)
[2020-11-05 11:26] VITALS: BP 121/70
--- NOTE | 2020-11-05 12:31 | NUR ---
Nursing Note Patient up ad charis in room. Patient denies pain or any acute changes. Patient continues on 2L of oxygen per home dose. No acute concerns. Will continue to monitor.
[2020-11-05] MEDS: traMADol 50 MG TABLET PO PRN ×2 (13:03→23:13)
[2020-11-05 15:09] VITALS: BP 110/62
[2020-11-05 19:30] VITALS: BP 132/76
[2020-11-05] MEDS: PRAMIPEXOLE 0.25 MG TABLET. PO SCH (21:00)
[2020-11-05] MEDS: LACTOBACILLUS RHAMNOSUS GG 1 CAPSULE. PO SCH (22:11)
--- NOTE | 2020-11-06 04:01 | PN ---
DATE: 11/05/2020 ATTENDING PHYSICIAN: Dr. Will and Dr. Tran. SUBJECTIVE: Feeling better, less . OBJECTIVE: VITAL SIGNS: Blood pressure is 121/70, pulse 86 and regular. She is afebrile. Oxygen saturation 94% on 2 liters. She already has oxygen at home. HEENT: Head is without trauma. Pupils are reactive. Sclerae nonicteric. Oropharynx is clear. No stridor. NECK: No stridor. Supple. LUNGS: Good breath sounds with good air movement. No wheezing or rales. CARDIOVASCULAR: Showed distant heart tones. ABDOMEN: Soft. EXTREMITIES: Without edema. NEUROLOGIC: Function focally intact. LABORATORY STUDIES: Reviewed. Serology is indeed positive for coronavirus. ASSESSMENT: 1. Acute on chronic respiratory failure, most likely due to the delta variant. She has already had her vaccine. 2. History of Piedad's granulomatosis. 3. Exacerbation of chronic obstructive pulmonary disease. 4. Restless leg syndrome. 5. Hypertension. PLAN: 1. Continue current regimen, Decadron, supplemental oxygen, fluids, and home meds. 2. Diet as tolerated. 3. Tentative discharge plans for tomorrow. She already has supplemental oxygen at home. SOO/ISABELLA/REBECCA DR: SOO/elio TID: [id number]
[2020-11-06 06:19] VITALS: BP 139/74
[2020-11-06] MEDS: POTASSIUM CHLORIDE 20 MEQ TABLET.ER. PO SCH (07:06)
[2020-11-06] MEDS: LACTOBACILLUS RHAMNOSUS GG 1 CAPSULE. PO SCH (08:50)
[2020-11-06] MEDS: CYCLOBENZAPRINE 10 MG TABLET. PO SCH (08:50)
[2020-11-06] MEDS: GABAPENTIN 300 MG CAPSULE. PO SCH (08:50)
[2020-11-06 08:51] VITALS: BP 139/74
[2020-11-06] MEDS: LOSARTAN 50 MG TABLET. PO SCH (08:51)
[2020-11-06] MEDS: PANTOPRAZOLE 40 MG TABLET. PO SCH (08:51)
[2020-11-06] MEDS: CITALOPRAM 20 MG TABLET. PO SCH (08:51)
[2020-11-06] MEDS: DEXAMETHASONE SOD PHOS 4 MG/ML VIAL. IVP SCH (08:51)
[2020-11-06] MEDS: APIXABAN 5 MG TABLET. PO SCH (08:52)
[2020-11-06] MEDS: MYCOPHENOLATE MOFETIL 250 MG CAPSULE PO SCH (08:52)
[2020-11-06] MEDS: IV NORMAL SALINE 1,000ML 1,000 ML IV SCH (09:45)
--- NOTE | 2020-11-06 10:20 | NUR ---
NURSING NOTE DISCHARGE PT DISCHARGED HOME VIA WHEELCHAIR PICKED UP BY . PT GIVEN WRITTEN AND VERBAL DISCHARGE INSTRUCTIONS. PT GIVEN SCRIPT FOR PREDNISONE. PT ENCOURAGED TO FOLLOW UP WITH PCP. BARTOLOME MADRIGAL.
--- NOTE | 2020-11-06 12:25 | DS ---
DATE OF DISCHARGE: 11/06/2020 ATTENDING PHYSICIAN: Dr. Will. FINAL DISCHARGE DIAGNOSES: 1. Acute on chronic respiratory failure. 2. Coronavirus infection, most likely delta variant. 3. History of Piedad's granulomatosis. 4. Exacerbation of chronic obstructive pulmonary disease. 5. Restless leg syndrome. 6. Chronic antirejection therapy. 7. Hypertension. HISTORY AND PHYSICAL: This 70-year-old female with a known history of COPD and Piedad's granulomatosis biopsy proven has coronavirus. She had wheezing, cough, congestion and respiratory failure. She was admitted for further treatment and evaluation. PHYSICAL EXAMINATION: Please see the dictated note. PERTINENT LABORATORY AND X-RAY STUDIES: The admission hemoglobin was 13.3 g/dL with a white count of 4000. Electrolytes within normal range. Creatinine 0.9. Serology was indeed positive for SARS-CoV-2 coronavirus by PCR. Chest x-ray showed no acute infiltrates. Symptoms were minimal. COURSE IN THE HOSPITAL: The patient was given supplemental oxygen. She already has oxygen at home. She wears it intermittently. She was given steroids along with her home meds. She did well. Respiratory symptoms improved and by the fourth hospital day, her vital signs were quite stable. Her lungs were clear. She was moving air well. She was ready for discharge. She remained afebrile. At this time, I recommended 40 mg of prednisone p.o. daily for 5 more days and then stop. She should continue her home meds including CellCept, Eliquis, citalopram, Flexeril p.r.n., Neurontin, losartan, Protonix, potassium, Mirapex, and tramadol, doses unchanged. I suggested she will follow up with Dr. Lechuga next week. She was discharged there from our hospital in stable condition with explicit drug and followup care. TOTAL DISCHARGE TIME SPENT: 38 minutes. SOO/CASS DR: Malia TID: [id number] CC: JESSICA LECHUGA MD
== END 2020-11-06 10:25 | disposition home or self-care (01) | DRG 177 ==
LOC: ER 16:15 → 1 SOUTH 18:58
PROVIDERS: ADMIT Internal Medicine; ATTEND Internal Medicine
DX: U07.1 COVID-19 (principal); J96.20 Acute and chronic respiratory failure, unspecified whether with hypoxia or hypercapnia; J44.1 Chronic obstructive pulmonary disease with (acute) exacerbation; M31.30 Wegener's granulomatosis without renal involvement; G25.81 Restless legs syndrome; I10 Essential (primary) hypertension; Z87.891 Personal history of nicotine dependence; Z90.49 Acquired absence of other specified parts of digestive tract; Z90.710 Acquired absence of both cervix and uterus; Z88.8 Allergy status to other drugs, medicaments and biological substances; K21.9 Gastro-esophageal reflux disease without esophagitis
CPT/HCPCS: 36415; 71045; 80053; 81001; 84484; 85025; 85027; 93005; 94640; 94760; 96374; 96375; J0696; J1100; J2405; J7040; J7517; U0003; 99285-25; J7030

== ENCOUNTER 2021-01-22 15:26 | Emergency (ER) | payer MEDICARE ==
[~2021-01-22] VITALS: Ht 160 cm; Wt 62.2 kg
[~2021-01-22 15:26] MED LIST changes: +POTA-121 PO; -POTA20TA4 PO
[2021-01-22 15:33] VITALS: BP 127/67
[2021-01-22] MEDS: LIDOCAINE/EPI/TETRACAINE TOPICAL GEL 3 ML. TP ONE (16:15)
--- NOTE | 2021-01-22 16:42 | PHYS DOC ---
Past History Past Medical History: COPD, GERD, Hypertension, Other Additional Past Medical Histor: alpha-1 antitrypsin; Piedad's granulomatous Past Surgical History: Appendectomy, Hysterectomy Smoking: Cigarettes Alcohol Use: None Drug Use: None General Adult EDM: Chief Complaint: FOOT INJURY PAIN HPI: HPI: Patient is a 70 year old female on Eliquis who presents with left foot digit 5 injury. Patient states she was clipping her toenails, when she accidentally clipped the end of her pinky toe. She was concerned, as she does take blood t hinners and she had significant stinging and pain. She states the bleeding did subside after arrival to the emergency department. She has no other complaints at this time. Review of Systems: Review of Systems: ROS negative except as mentioned in HPI. Current Medications: Current Meds: Current Medications Medications (Trade) Dose Ordered Sig/Rio Start Time Stop Time Status Last Admin Dose Admin Lidocaine/ Epinephrine (Let (Jppd-Rivjgaf-Vltph) Gel) 3 ml 1X ONCE 01/22/21 16:15 01/22/21 16:16 DC 01/22/21 16:15 3 ML Allergies: Allergies: Allergies Coded Allergies Type Severity Reaction Last Updated Verified doxycycline Allergy Intermediate 02/23/17 Yes methotrexate Allergy Intermediate 02/23/17 Yes Physical Exam: PE: Constitutional: Well developed, well nourished, no acute distress, non-toxic appearance. Cardiovascular: Heart rate regular rhythm, no murmur. Lungs & Thorax: Bilateral breath sounds clear to auscultation. Skin: Skin to the distal end of the fifth digit on the left foot completely removed without visible bony tissue. Skin otherwise warm, dry, no erythema, no rash. Extremities: See above for left pinky toe injury. Otherwise extremities have no tenderness, no cyanosis, no clubbing, ROM intact, no edema. Neurologic: Alert and oriented x3, normal motor function, normal sensory function, no focal deficits noted. Current Patient Data: Vital Signs: Vital Signs Date Time Temp Pulse Resp B/P (MAP) Pulse Ox O2 Delivery O2 Flow Rate FiO2 01/22/21 15:33 98.4 73 16 127/67 (87) 98 Room Air Heart Score: C/O Chest Pain: No Course & Med Decision Making: Course & Med Decision Making Pertinent Labs and Imaging studies reviewed. (See chart for details) There is no active bleeding on exam. Patient will be provided with let gel to minimize discomfort. Afterward, wound will be cleansed and dressed. Patient is advised to return to the department if she develops a fever or if the wound becomes erythematous or develops purulent discharge. Patient understands and is agreeable to discharge plan. Dragon Disclaimer: Dragon Disclaimer: This electronic medical record was generated, in whole or in part, using a voice recognition dictation system. Departure Departure: Disposition: HOME / SELF CARE / HOMELESS Condition: STABLE Referrals: JESSICA NAIK MD (PCP) Patient Instructions: Toe Injuries and Amputations Additional Instructions: Please return to the emergency department if you develop signs of infection including fever, warmth and redness around the wound, or purulent discharge from the wound. BRIJESH DEVI Jan 22, 2021 16:42
== END 2021-01-22 16:45 | disposition home or self-care (01) ==
LOC: ER 15:26
DX: S99.922A Unspecified injury of left foot, initial encounter (principal); K21.9 Gastro-esophageal reflux disease without esophagitis; J44.9 Chronic obstructive pulmonary disease, unspecified; I10 Essential (primary) hypertension; F17.210 Nicotine dependence, cigarettes, uncomplicated; Z90.710 Acquired absence of both cervix and uterus; W01.0XXA Fall on same level from slipping, tripping and stumbling without subsequent striking against object, initial encounter; Y93.89 Activity, other specified; Y92.89 Other specified places as the place of occurrence of the external cause; Y99.8 Other external cause status
CPT/HCPCS: 99281